=== PATIENT | female | born 1960 | race African-American/Black ===

== ENCOUNTER 2019-02-25 13:47 | Observation (INO) | payer MEDICARE, OTHER ==
--- NOTE | 2019-02-25 14:43 | ED ---
General Adult HPI - General Chief complaint: GI Bleed Stated complaint: rectal bleeding Time Seen by Provider: 02/25/19 13:55 Source: patient, RN notes reviewed Mode of arrival: ambulatory Limitations: no limitations - History of Present Illness Initial comments: This a 58-year-old female who presents emergency Department with a past medical history of alcoholism and upper GI bleed according to the patient. Patient is an extremely poor historian. Patient states she started having some bright red blood per rectum today. Patient denies any pain in the rectum patient denies abdominal pain patient denies nausea vomiting diarrhea. Patient denies any lightheadedness dizziness or near syncopal episode. Patient states this is how it occurred in the past. Patient states she hasn't drink any alcohol for a month. Patient states she's not had any illegal drugs. Patient denies any other symptoms at this time. - Related Data Home Medications Medication Instructions Recorded Confirmed Acetaminophen [Tylenol Arthritis] 650 mg PO Q4H PRN 02/25/19 02/25/19 Calcium Carbonate/Vitamin D3 1 tab PO BID 02/25/19 02/25/19 [Oyster Shell-D 250 mg Tablet] Chlorpheniramine Maleate 4 mg PO Q4H PRN 02/25/19 02/25/19 [Chlor-Trimeton] Cyanocobalamin (Vitamin B-12) 2,500 mcg PO DAILY 02/25/19 02/25/19 [Vitamin B-12] Ferrous Sulfate [Feosol] 325 mg PO DAILY 02/25/19 02/25/19 Gabapentin [Neurontin] 400 mg PO TID 02/25/19 02/25/19 Levothyroxine Sodium [Synthroid] 125 mcg PO DAILY 02/25/19 02/25/19 Multivitamins, Thera [Multivitamin 1 tab PO DAILY 02/25/19 02/25/19 (formulary)] Mylanta 30 ml PO Q4H PRN 02/25/19 02/25/19 Naproxen 500 mg PO TID PRN 02/25/19 02/25/19 OXcarbazepine [Trileptal] 600 mg PO TID 02/25/19 02/25/19 Ondansetron HCl [Zofran] 8 mg PO Q6H PRN 02/25/19 02/25/19 Ondansetron [Zofran] 4 mg IM Q6H 02/25/19 02/25/19 QUEtiapine [SEROquel] 200 mg PO HS 02/25/19 02/25/19 Ranitidine HCl [Zantac] 150 mg PO DAILY 02/25/19 02/25/19 Thiamine [Vitamin B-1] 100 mg PO DAILY 02/25/19 02/25/19 Tigan 200mg 200 mg IM Q6H PRN 02/25/19 02/25/19 Trimethobenzamide [Tigan] 300 mg PO Q6H PRN 02/25/19 02/25/19 busPIRone HCL 15 mg PO BID 02/25/19 02/25/19 Allergies Allergy/AdvReac Type Severity Reaction Status Date / Time ibuprofen [From Motrin] AdvReac bleeding Verified 02/25/19 14:10 Review of Systems ROS Statement: Those systems with pertinent positive or pertinent negative responses have been documented in the HPI. ROS Other: All systems not noted in ROS Statement are negative. Past Medical History Past Medical History: GI Bleed, Thyroid Disorder Past Surgical History: Bowel Resection Additional Past Surgical History / Comment(s): abd surgery Past Psychological History: Bipolar Smoking Status: Current every day smoker Past Alcohol Use History: Abuse, Daily Past Drug Use History: Cocaine General Exam - General Exam Comments Initial Comments: GENERAL: Patient is well-developed and well-nourished. Patient is nontoxic and well- hydrated and is in no acute distress. ENT: Neck is soft and supple. No significant lymphadenopathy is noted. Oropharynx is clear. Moist mucous membranes. Neck has full range of motion without eliciting any pain. EYES: The sclera were anicteric and conjunctiva were pink and moist. Extraocular movements were intact and pupils were equal round and reactive to light. Eyelids were unremarkable. PULMONARY: Unlabored respirations. Good breath sounds bilaterally. No audible rales rhonchi or wheezing was noted. CARDIOVASCULAR: There is a regular rate and rhythm without any murmurs gallops or rubs. ABDOMEN: Mild tenderness diffusely. Abdomen is mildly distended. No palpable organomegaly was noted. There is no palpable pulsatile mass. SKIN: Skin is clear with no lesions or rashes and otherwise unremarkable. NEUROLOGIC: Patient is alert and oriented x3. Cranial nerves II through XII are grossly intact. Motor and sensory are also intact. Normal speech, volume and content. Symmetrical smile. MUSCULOSKELETAL: Normal extremities with adequate strength and full range of motion. No lower extremity swelling or edema. No calf tenderness. LYMPHATICS: No significant lymphadenopathy is noted PSYCHIATRIC: Normal psychiatric evaluation. Limitations: no limitations Course Vital Signs 02/25/19 13:52 Temperature 98.2 F Pulse Rate 74 Respiratory 18 Rate Blood Pressure 128/82 O2 Sat by Pulse 100 Oximetry Medical Decision Making - Medical Decision Making Patient states she is having bowel movements regularly. Patient states she is not nauseous and has had no vomiting. - Lab Data Result diagrams: 02/25/19 15:15 02/25/19 15:15 Lab Results 02/25/19 02/25/19 02/25/19 Range/Units 15:15 15:15 15:15 WBC 4.1 (3.8-10.6) k/uL RBC 3.42 L (3.80-5.40) m/uL Hgb 8.3 L (11.4-16.0) gm/dL Hct 27.3 L (34.0-46.0) % MCV 80.0 (80.0-100.0) fL MCH 24.2 L (25.0-35.0) pg MCHC 30.3 L (31.0-37.0) g/dL RDW 17.7 H (11.5-15.5) % Plt Count 416 (150-450) k/uL Neutrophils % 46 % Lymphocytes % 39 % Monocytes % 8 % Eosinophils % 3 % Basophils % 1 % Neutrophils # 1.9 (1.3-7.7) k/uL Lymphocytes # 1.6 (1.0-4.8) k/uL Monocytes # 0.3 (0-1.0) k/uL Eosinophils # 0.1 (0-0.7) k/uL Basophils # 0.0 (0-0.2) k/uL Hypochromasia Slight Anisocytosis Slight Microcytosis Slight PT 9.6 (9.0-12.0) sec INR 0.9 (<1.2) APTT 23.7 (22.0-30.0) sec Sodium 140 (137-145) mmol/L Potassium 4.7 (3.5-5.1) mmol/L Chloride 108 H (98-107) mmol/L Carbon Dioxide 25 (22-30) mmol/L Anion Gap 7 mmol/L BUN 12 (7-17) mg/dL Creatinine 0.68 (0.52-1.04) mg/dL Est GFR (CKD-EPI)AfAm >90 (>60 ml/min/1.73 sqM) Est GFR (CKD-EPI)NonAf >90 (>60 ml/min/1.73 sqM) Glucose 89 (74-99) mg/dL Calcium 9.3 (8.4-10.2) mg/dL Magnesium 1.7 (1.6-2.3) mg/dL Total Bilirubin 0.1 L (0.2-1.3) mg/dL AST 27 (14-36) U/L ALT 15 (9-52) U/L Alkaline Phosphatase 62 (38-126) U/L Total Protein 6.2 L (6.3-8.2) g/dL Albumin 3.6 (3.5-5.0) g/dL Serum Alcohol <10 mg/dL Blood Type Blood Type Recheck Antibody Screen Spec Expiration Date 02/25/19 Range/Units 15:15 WBC (3.8-10.6) k/uL RBC (3.80-5.40) m/uL Hgb (11.4-16.0) gm/dL Hct (34.0-46.0) % MCV (80.0-100.0) fL MCH (25.0-35.0) pg MCHC (31.0-37.0) g/dL RDW (11.5-15.5) % Plt Count (150-450) k/uL Neutrophils % % Lymphocytes % % Monocytes % % Eosinophils % % Basophils % % Neutrophils # (1.3-7.7) k/uL Lymphocytes # (1.0-4.8) k/uL Monocytes # (0-1.0) k/uL Eosinophils # (0-0.7) k/uL Basophils # (0-0.2) k/uL Hypochromasia Anisocytosis Microcytosis PT (9.0-12.0) sec INR (<1.2) APTT (22.0-30.0) sec Sodium (137-145) mmol/L Potassium (3.5-5.1) mmol/L Chloride (98-107) mmol/L Carbon Dioxide (22-30) mmol/L Anion Gap mmol/L BUN (7-17) mg/dL Creatinine (0.52-1.04) mg/dL Est GFR (CKD-EPI)AfAm (>60 ml/min/1.73 sqM) Est GFR (CKD-EPI)NonAf (>60 ml/min/1.73 sqM) Glucose (74-99) mg/dL Calcium (8.4-10.2) mg/dL Magnesium (1.6-2.3) mg/dL Total Bilirubin (0.2-1.3) mg/dL AST (14-36) U/L ALT (9-52) U/L Alkaline Phosphatase (38-126) U/L Total Protein (6.3-8.2) g/dL Albumin (3.5-5.0) g/dL Serum Alcohol mg/dL Blood Type O Positive Blood Type Recheck CABO Indicated Antibody Screen NEGATIVE Spec Expiration Date 02/28/2019 - 2314 Disposition Clinical Impression: Anemia, Alcoholism, GI bleed Disposition: ADMITTED IP TO THIS [facility] Referrals: None,Stated [Primary Care Provider] - 1-2 days Time of Disposition: 17:04
--- NOTE | 2019-02-25 16:21 | XR ---
EXAMINATION TYPE: XR abdomen 1V DATE OF EXAM: 02/25/2019 4:10 PM CLINICAL HISTORY: GI bleeding. Abdominal pain. TECHNIQUE: Single upright image of the abdomen is obtained. COMPARISON: None. FINDINGS: The colon is dilated up to 8.9 cm. Surgical clips are seen within the right lower quadrant and left epigastric region. Scattered gas is seen in nondilated small bowel loops. There is no pneum operitoneum or abnormal calcification appreciated. The lung bases are clear and the osseous structure s are intact. Mild levoscoliosis of the lumbar spine and moderate degenerative disc disease are seen. IMPRESSION: Colonic dilatation up to 8.9 cm with a paucity of rectal air. Mechanical colonic obstruct ion is suspected.
[2019-02-25 16:22] LABS: ALT 15 U/L (9-52); AST 27 U/L (14-36); African American GFR (CKD) >90 (>60 ml/min/1.73 sqM); Albumin 3.6 g/dL (3.5-5.0); Alcohol <10 mg/dL; Alkaline Phosphatase 62 U/L (38-126); Anion Gap 7 mmol/L; Blood Urea Nitrogen 12 mg/dL (7-17); Calcium 9.3 mg/dL (8.4-10.2); Carbon Dioxide 25 mmol/L (22-30); Chloride 108 mmol/L (98-107); Glucose 89 mg/dL (74-99); Magnesium 1.7 mg/dL (1.6-2.3); Potassium 4.7 mmol/L (3.5-5.1); Sodium 140 mmol/L (137-145); Total Bilirubin 0.1 mg/dL (0.2-1.3); Total Protein 6.2 g/dL (6.3-8.2)
[2019-02-25 16:28] LABS: INR 0.9 (<1.2); Partial Thromboplastin Time 23.7 sec (22.0-30.0); Prothrombin Time 9.6 sec (9.0-12.0)
[2019-02-25 16:42] LABS: Anisocytosis Slight; Basophils % (A) 1 %; Eosinophils # (A) 0.1 k/uL (0-0.7); Eosinophils % (A) 3 %; HCT 27.3 % (34.0-46.0); HGB 8.3 gm/dL (11.4-16.0); Hypochromasia Slight; Lymphocytes # (A) 1.6 k/uL (1.0-4.8); Lymphocytes % (A) 39 %; MCH 24.2 pg (25.0-35.0); MCHC 30.3 g/dL (31.0-37.0); Mean Platelet Volume 7.2; Microcytosis Slight; Monocytes # (A) 0.3 k/uL (0-1.0); Monocytes % (A) 8 %; Neutrophils # (A) 1.9 k/uL (1.3-7.7); Neutrophils % (A) 46 %; Platelet Count 416 k/uL (150-450); RBC 3.42 m/uL (3.80-5.40); RDW 17.7 % (11.5-15.5); WBC 4.1 k/uL (3.8-10.6)
[2019-02-25] MEDS ORDERED: SODIUM CHLORIDE 0.9% 1,000 ML IV ONE (17:04)
[2019-02-25] MEDS ORDERED: LORazepam 2 MG/ML INJ IV STA (17:29)
--- NOTE | 2019-02-25 20:13 | CT ---
EXAMINATION TYPE: CT abdomen pelvis w con DATE OF EXAM: 02/25/2019 COMPARISON: None HISTORY: Rectal bleeding. CT DLP: 735.5 mGycm Automated exposure control for dose reduction was used. TECHNIQUE: Helical acquisition of images was performed from the lung bases through the pelvis. CONTRAST: Performed without Oral Contrast and with IV Contrast, patient injected with 100ml inject th rough patient's left dorsal foot. mL of Isovue 300. FINDINGS: VISUALIZED SUPRADIAPHRAGMATIC STRUCTURES: Moderate cardiomegaly with panchamber enlargement noted, an d pericardial effusion. No acute pulmonary-pleural process evident. LIVER/GB: No significant abnormality is appreciated. PANCREAS: No significant abnormality is seen. SPLEEN: No significant abnormality is seen. ADRENALS: No significant abnormality is seen. KIDNEYS: No significant abnormality is seen. FREE AIR: No free air is visualized. RETROPERITONEAL ADENOPATHY: None visualized REPRODUCTIVE ORGANS: No significant abnormality is seen URINARY BLADDER: No significant abnormality is seen. PELVIC ADENOPATHY: None visualized. OSSEOUS STRUCTURES: No significant abnormality is seen. BOWEL: The stomach is fluid distended but not dilated. Duodenum and jejunum and ileum are normal in appearance. The colon is completely redundant and it is distended with gas and fecal material through out. There is a caliber change at the distal sigmoid level. The dilated sigmoid does not show mural t hickening or edematous reticulation within its mesocolon. If clinical concern for sigmoid volvulus, e ither now or intermittently, this can be excluded with simple prone CT pelvis imaging without contras t. OTHER: No acute vascular findings. IMPRESSION: 1) NO DEFINITE ACUTE PROCESS. HOWEVER, DISTAL SIGMOID CALIBER CHANGE NOTED, UNLIKELY TO REPRESENT A VOLVULUS BUT DISCUSSION ABOVE. 2) CARDIOMEGALY WITH PERICARDIAL EFFUSION.
[2019-02-25 22:16] VITALS: BMI 25.0
[2019-02-25] MEDS ORDERED: TRIMETHOBENZAMIDE 100 MG/ML 2 ML VIAL IM PRN (22:32)
[2019-02-25] MEDS ORDERED: TRIMETHOBENZAMIDE 300 MG CAP PO PRN (22:32)
[2019-02-25] MEDS ORDERED: ONDANSETRON 4 MG TAB PO PRN (22:33)
[2019-02-25] MEDS ORDERED: MAG HYDROX/AL HYDROX/SIMETH 30 ML CUP PO PRN (22:35)
[2019-02-25] MEDS ORDERED: LORazepam 2 MG/ML INJ IV PRN (22:37)
[2019-02-25] MEDS: busPIRone HCl 5 MG TAB PO SCH (23:24)
[2019-02-25] MEDS: QUEtiapine 200 MG TAB PO SCH (23:25)
[2019-02-25] MEDS: GABAPENTIN 400 MG CAP PO SCH (23:25)
[2019-02-25] MEDS: OXcarbazepine 300 MG TAB PO SCH (23:25)
[2019-02-25 23:36] LABS: Anisocytosis Slight; Basophils # (A) 0.1 k/uL (0-0.2); Basophils % (A) 1 %; Eosinophils # (A) 0.2 k/uL (0-0.7); Eosinophils % (A) 4 %; HCT 26.4 % (34.0-46.0); HGB 8.2 gm/dL (11.4-16.0); Hypochromasia Slight; Lymphocytes # (A) 2.1 k/uL (1.0-4.8); Lymphocytes % (A) 45 %; MCH 24.7 pg (25.0-35.0); MCHC 31.2 g/dL (31.0-37.0); MCV 79.3 fL (80.0-100.0); Mean Platelet Volume 7.5; Microcytosis Slight; Monocytes # (A) 0.4 k/uL (0-1.0); Monocytes % (A) 8 %; Neutrophils # (A) 1.8 k/uL (1.3-7.7); Neutrophils % (A) 40 %; Platelet Count 379 k/uL (150-450); RBC 3.32 m/uL (3.80-5.40); RDW 17.5 % (11.5-15.5); WBC 4.6 k/uL (3.8-10.6)
[2019-02-26] MEDS ORDERED: NON-FORMULARY DRUG (Ondansetron Hcl [Zofran] 8 MG) PO PRN (00:29)
--- NOTE | 2019-02-26 05:17 | HP ---
HISTORY AND PHYSICAL DATE OF SERVICE: 02/25/2019 CHIEF COMPLAINT: Rectal bleeding. HISTORY OF PRESENT ILLNESS: This 58-year-old woman with a past medical history of multiple medical problems including GI bleed, seizure disorder, hypothyroidism, was living in the [place] area. The patient is currently at [place] for possibly alcohol issues. The patient previously had GI bleed and had stomach ulcers and surgery in the [place] area. The are not available at this time. The patient is currently in [place] as mentioned earlier. Patient had episodes of rectal bleeding, multiple and the patient had abdominal discomfort. The patient came to [facility] and admitted for further evaluation and treatment. The patient reports bright red blood per rectum. Hemoglobin is found to be 8.3. There is no history of any fever or rigors. No history of headache, loss of consciousness or seizures. PAST MEDICAL HISTORY: Seizure disorder, hypothyroidism, history of schizophrenia, bipolar, ETOH abuse, cocaine abuse, Summer-Quiroz tear, anemia, hemorrhoids, schizoaffective disorder. MEDICATIONS: Home medications are: 1. Buspirone 15 mg p.o. b.i.d. 2. Tigan 300 mg q.6 p.r.n. 3. Vitamin B1, 100 mg p.o. daily. 4. Zantac 150 mg p.o. daily. 5. Seroquel 200 mg q.h.s. 6. Zofran 4 mg q.6 p.r.n. 7. Zofran 8 mg q.6 p.r.n. 8. Trileptal 600 mg p.o. t.i.d. 9. Naprosyn 500 mg t.i.d. p.r.n. 10.Mylanta 30 mL q.4 p.r.n. 11.Multivitamins one p.o. daily. 12.Synthroid 125 mcg p.o. daily. 13.Neurontin 400 mg p.o. t.i.d. 14.Iron sulfate 325 mg p.o. daily. 15.Vitamin B12, 2.5 mg p.o. daily. 16.Chlor-Trimeton 4 mg p.o. q.4 p.r.n. 17.Oyster shell 1 tablet p.o. b.i.d. 18.Tylenol 650 mg q.4 p.r.n. ALLERGIES: Allergies are IBUPROFEN. FAMILY HISTORY: No history of heart disease or strokes in the family. SOCIAL HISTORY: History of polysubstance abuse as mentioned including smoking, alcohol and cocaine per chart. REVIEW OF SYSTEMS: ENT: No diminished hearing or diminished vision. CARDIOVASCULAR SYSTEM: No angina. RESPIRATORY SYSTEM: As mentioned earlier. GI: As mentioned earlier. : No dysuria. NERVOUS SYSTEM: Abnormal movements. ALLERGY/IMMUNOLOGY: No asthma or hayfever. MUSCULOSKELETAL: As mentioned earlier. HEMATOLOGY/ONCOLOGY: No history of anemia. ENDOCRINE: Hypothyroidism. CONSTITUTIONAL: As mentioned earlier. DERMATOLOGY: Negative. RHEUMATOLOGY: Negative. PSYCHIATRY: As mentioned earlier. PHYSICAL EXAMINATION: The patient is alert and oriented x3. Pulse 68, blood pressure 145/84, respiration 16, temperature 97.3, pulse ox 99% on room air. HEENT: Conjunctivae pale. Oral mucosa moist. NECK: No jugular venous distention. No carotid bruit. No lymph node enlargement. CARDIOVASCULAR: S1, S2 muffled. No S3, no S4. RESPIRATORY: Breath sounds diminished in the bases. No rhonchi, no crackles. ABDOMEN: Soft, mild diffuse distention. Status post recent surgery, which is healing. Mild diffuse tenderness. No guarding. No rigidity. Bowel sounds present. No ascites. LEGS: No edema. No swelling. NERVOUS SYSTEM: Higher functions as mentioned earlier. Moves all 4 limbs. No focal motor or sensory deficit. LYMPHATICS: No lymphadenopathy of the neck, axillae or groin. SKIN: No ulcer, rash or bleeding. JOINTS: No active deforming arthropathy. LABS: Labs are at this time show WBC 4.6, hemoglobin is 8.2, MCV 79.3. Sodium 140, potassium 4.7. ASSESSMENT: 1. Acute gastrointestinal bleed with acute blood loss anemia. 2. Microcytosis. 3. Previous history of gastrointestinal bleed, stomach ulcers and as well as gastric surgery. 4. History of alcoholism. 5. History of polysubstance abuse. 6. History of seizure disorder. 7. History of hypothyroidism. 8. History of bipolar, schizoaffective disorder. 9. History of Summer-Quiroz tear. 10.History of lupus. 11.Continued history of nicotine dependence. 12.History of cocaine abuse. RECOMMENDATIONS AND DISCUSSION: This 58-year-old woman presented with multiple complex medical issues. Will monitor the patient closely. Continue the current medications. Continue symptomatic treatment. Will monitor hemoglobin closely. The morning hemoglobin is 8.3. I would recommend hemoglobin currently and repeat hemoglobin, Gastroenterology consultation, possible endoscopies. Will get old records from [facility]. I would also recommend surgical evaluation. Resume the home medications. Hold NSAIDs. DVT prophylaxis. Prognosis guarded because of multiple complex medical issues. Further recommendations to follow. Also recommend the coagulation parameters are within normal limits. If hemoglobin falls below 7, I would recommend a transfusion and continue to monitor. Once again, the prognosis extremely guarded. MMODL / IJN: [id number] / FINA
[2019-02-26] MEDS: LEVOTHYROXINE 50 MCG TAB PO SCH (06:09)
--- NOTE | 2019-02-26 08:09 | P.CONS ---
History of Present Illness - Reason for Consult Consult date: 02/26/19 GI bleed Requesting physician: Behzad Chun - Chief Complaint GI bleed - History of Present Illness 58-year-old female past medical history schizophrenia bipolar, perforated gastric ulcer about 2 months ago status post repair followed by EGD colonoscopy 1 month ago at [facility] she had multiple gastric ulcers, polysubstance abuse including cocaine alcoholism recently admitted to [facility]. Presents with rectal bleeding bright red in nature without fever or chills 3 days. Last bloody BM was yesterday afternoon in the ER. Last alcohol drink about a month ago. Admission hemoglobin 8.3. MCV 80. Platelet 416. INR 0.9. BUN 12. Creatinine 0.6. Serum alcohol less than 10. LFTs total bilirubin 0.1. AST 27. ALT 15. AP 62. Patient has been faithfully taking PPI therapy daily. No NSAIDs or aspirin. CT abdomen no definite acute process. Colon is completely redundant and distended with gas and fecal material throughout. Caliber change at the distal sigmoid level. Unlikely to represent a volvulus. Cardiomegaly with pericardial effusion. Review of Systems Constitutional: Denies fever, chills, sweats, weight gain, or loss. HEENT: Negative for migraines, blurred vision or loss, earaches, drainage, tinnitus, oral mucosal lesions, dysphagia, or odynophagia. CARDIAC: Negative for chest pain, arrhythmias, or palpitation. RESPIRATORY: Negative for shortness of breath, hemoptysis, cough, or sputum production. GI: See HPI for pertinent findings. : Negative for hematuria, urgency, frequency, polyuria, or dysuria. GYNc: Denies possibility of . Negative vaginal discharge. MUSCULOSKELETAL: Negative for muscle aches, swelling, arthritis, and arthralgias. NEUROLOGIC: Negative for stroke or TIA. ENDOCRINE: Negative for thyroid problems. SKIN: Negative for rash or itching. PSYCHIATRIC: Negative history for depression and anxiety Past Medical History Past Medical History: GI Bleed, Seizure Disorder, Thyroid Disorder Additional Past Medical History / Comment(s): Patient poor historian, history gained from [facility] paperwork: Schizophrenia, bipolar, EtOh abuse, cocaine abuse, Gi ulcers, Summer-Quiroz tear, anemia, hemorrhoids, lupus History of Any Multi-Drug Resistant Organisms: None Reported Past Surgical History: Bowel Resection Additional Past Surgical History / Comment(s): Bowel resection December 2018 Past Anesthesia/Blood Transfusion Reactions: No Reported Reaction Smoking Status: Current every day smoker Medications and Allergies Home Medications Medication Instructions Recorded Confirmed Type Acetaminophen [Tylenol Arthritis] 650 mg PO Q4H PRN 02/25/19 02/25/19 History Calcium Carbonate/Vitamin D3 1 tab PO BID 02/25/19 02/25/19 History [Oyster Shell-D 250 mg Tablet] Chlorpheniramine Maleate 4 mg PO Q4H PRN 02/25/19 02/25/19 History [Chlor-Trimeton] Cyanocobalamin (Vitamin B-12) 2,500 mcg PO DAILY 02/25/19 02/25/19 History [Vitamin B-12] Gabapentin [Neurontin] 400 mg PO TID 02/25/19 02/25/19 History Levothyroxine Sodium [Synthroid] 125 mcg PO DAILY 02/25/19 02/25/19 History Multivitamins, Thera [Multivitamin 1 tab PO DAILY 02/25/19 02/25/19 History (formulary)] Mylanta 30 ml PO Q4H PRN 02/25/19 02/25/19 History OXcarbazepine [Trileptal] 600 mg PO TID 02/25/19 02/25/19 History Ondansetron HCl [Zofran] 8 mg PO Q6H PRN 02/25/19 02/25/19 History Ondansetron [Zofran] 4 mg IM Q6H 02/25/19 02/25/19 History QUEtiapine [SEROquel] 200 mg PO HS 02/25/19 02/25/19 History Thiamine [Vitamin B-1] 100 mg PO DAILY 02/25/19 02/25/19 History Tigan 200mg 200 mg IM Q6H PRN 02/25/19 02/25/19 History Trimethobenzamide [Tigan] 300 mg PO Q6H PRN 02/25/19 02/25/19 History busPIRone HCL 15 mg PO BID 02/25/19 02/25/19 History Ferrous Sulfate [Iron (65 MG 325 mg PO DAILY #1 02/27/19 02/25/19 Rx Elemental)] Pantoprazole [Protonix] 40 mg PO AC-BID #60 tablet. 02/27/19 Rx Allergies Allergy/AdvReac Type Severity Reaction Status Date / Time ibuprofen [From Motrin] AdvReac bleeding Verified 02/25/19 14:10 Physical Exam Vitals: Vital Signs Temp Pulse Pulse Resp BP BP Pulse Ox 02/26/19 04:56 98.4 F 61 16 91/52 100 02/26/19 00:10 68 16 02/25/19 21:42 97.3 F L 68 16 145/84 99 02/25/19 19:30 98.3 F 73 17 124/73 99 02/25/19 13:52 98.2 F 74 18 128/82 100 Intake and Output 02/25/19 02/25/19 02/26/19 14:59 22:59 06:59 Intake Total 0 Balance 0 Intake: Oral 0 Other: # Voids 2 Weight 74.843 kg General appearance: The patient is alert, oriented, in no acute distress. HET: Head is normocephalic and atraumatic. Pupils are equal and reactive. Oropharynx is clear without lesions. Neck: Supple without lymphadenopathy. Trachea midline. Heart: S1 S2. Regular rate and rhythm. Lungs: No crackles or wheezes are heard. Abdomen: Soft, very mild tenderness to the mid abdomen, nondistended with bowel sounds. No peritoneal signs. No palpable organomegaly or masses. Extremities: Normal skin color and turgor. No cyanosis, rash, ulceration, clubbing, or edema. Radial and pedal pulses are 2/4 bilaterally. Neurological: No focal deficits. Strength and sensation are grossly intact. Results CBC & Chem 7: 02/26/19 08:53 02/27/19 07:57 Labs: Abnormal Lab Results - Last 24 Hours (Table) 02/25/19 02/25/19 02/25/19 Range/Units 15:15 15:15 23:12 RBC 3.42 L 3.32 L (3.80-5.40) m/uL Hgb 8.3 L 8.2 L (11.4-16.0) gm/dL Hct 27.3 L 26.4 L (34.0-46.0) % MCV 79.3 L (80.0-100.0) fL MCH 24.2 L 24.7 L (25.0-35.0) pg MCHC 30.3 L (31.0-37.0) g/dL RDW 17.7 H 17.5 H (11.5-15.5) % Chloride 108 H (98-107) mmol/L Total Bilirubin 0.1 L (0.2-1.3) mg/dL Total Protein 6.2 L (6.3-8.2) g/dL CT scan - abdomen: report reviewed (Dr. Zee) Assessment and Plan (1) GI bleed Narrative/Plan: 58-year-old female history of polysubstance abuse alcoholism recent perforated gastric ulcer status post repair at outside hospital followed by EGD colonoscopy about a month ago, patient reports she had gastric ulcers, admitted with acute bright red rectal bleeding underlying normocytic hypochromic anemia suspect acute blood loss component. Current Visit: Yes Status: Acute Code(s): K92.2 - GASTROINTESTINAL HEMORRHAGE, UNSPECIFIED SNOMED Code(s): 07901810 (2) Normocytic anemia Current Visit: Yes Status: Acute Code(s): D64.9 - ANEMIA, UNSPECIFIED SNOMED Code(s): 867064834 (3) Acute blood loss anemia Current Visit: Yes Status: Acute Code(s): D62 - ACUTE POSTHEMORRHAGIC ANEMIA SNOMED Code(s): 305105250 (4) History of ETOH abuse Current Visit: Yes Status: Acute Code(s): F10.11 - ALCOHOL ABUSE, IN REMISSION SNOMED Code(s): 565647918 Plan: 1. Nothing by mouth except meds. Surgical records from [facility] have been requested. CBC monitoring. Protonix 40 mg twice daily. Surveillance EGD discussed. Thank you for this kind referral and the opportunity to participate in the care of your patient. This consultation was discussed with Dr. Up. The impression and plan of care have been directed as dictated.
[2019-02-26] MEDS: NICOTINE 14MG/24HR PATCH TRANSDERM SCH ×2 (08:45→08:52)
[2019-02-26] MEDS: GABAPENTIN 400 MG CAP PO SCH ×3 (08:45→22:05)
[2019-02-26] MEDS: busPIRone HCl 5 MG TAB PO SCH ×2 (08:45→22:05)
[2019-02-26] MEDS: OXcarbazepine 300 MG TAB PO SCH ×3 (08:46→22:06)
[2019-02-26] MEDS: THIAMINE 100 MG TAB PO SCH (08:47)
[2019-02-26] MEDS ORDERED: NON-FORMULARY DRUG (Buspirone Hcl [Buspirone Hcl] 15 MG) PO SCH (09:00)
[2019-02-26] MEDS ORDERED: OXCARBAZEPINE 600 MG PO SCH (09:00)
[2019-02-26] MEDS ORDERED: PANTOPRAZOLE 40 MG/10 ML VIAL IVP SCH ×2 (09:00)
[2019-02-26 09:24] LABS: Anisocytosis Slight; Basophils % (A) 1 %; Eosinophils # (A) 0.1 k/uL (0-0.7); Eosinophils % (A) 2 %; HCT 28.2 % (34.0-46.0); HGB 8.5 gm/dL (11.4-16.0); Hypochromasia Slight; Lymphocytes # (A) 1.7 k/uL (1.0-4.8); Lymphocytes % (A) 47 %; MCH 24.4 pg (25.0-35.0); MCHC 30.1 g/dL (31.0-37.0); MCV 81.2 fL (80.0-100.0); Mean Platelet Volume 6.7; Microcytosis Slight; Monocytes # (A) 0.2 k/uL (0-1.0); Monocytes % (A) 6 %; Neutrophils # (A) 1.4 k/uL (1.3-7.7); Neutrophils % (A) 40 %; Platelet Count 380 k/uL (150-450); RBC 3.47 m/uL (3.80-5.40); RDW 17.6 % (11.5-15.5); WBC 3.5 k/uL (3.8-10.6)
[2019-02-26 09:34] LABS: African American GFR (CKD) >90 (>60 ml/min/1.73 sqM); Anion Gap 4 mmol/L; Blood Urea Nitrogen 8 mg/dL (7-17); Calcium 8.5 mg/dL (8.4-10.2); Carbon Dioxide 24 mmol/L (22-30); Chloride 107 mmol/L (98-107); Glucose 70 mg/dL (74-99); Potassium 4.5 mmol/L (3.5-5.1); Sodium 135 mmol/L (137-145)
--- NOTE | 2019-02-26 11:03 | P.GSCN ---
History of Present Illness Consult date: 02/26/19 Reason for Consult: GI bleed Requesting physician: Behzad Chun History of present illness: CHIEF COMPLAINT: Bright red blood per rectum HISTORY OF PRESENT ILLNESS: 58-year-old female with a history of polysubstance abuse including alcoholism and cocaine use who presents to the emergency room with a chief complaint of bright red blood per rectum. Patient states she has been having rectal bleeding on and off for the past few months but noticed it has been worse the past 2 days. She complains of epigastric pain this morning. Denies nausea or vomiting. Denies fever or chills. Reports last alcoholic drink was about 4-5 weeks ago. She apparently had an EGD and colonoscopy performed about a month ago and was found to have a perforated gastric ulcer. No records available at this time to review. PAST MEDICAL HISTORY: See list. PAST SURGICAL HISTORY: See list. SOCIAL HISTORY: No illicit drug use. REVIEW OF SYSTEMS: CONSTITUTIONAL: Denies fever or chills. HEENT: Denies blurred vision, vision changes, or eye pain. Denies hemoptysis CARDIOVASCULAR: Denies chest pain or pressure. RESPIRATORY: No shortness of breath. GASTROINTESTINAL: Refer to HPI for pertinent findings HEMATOLOGIC: Denies bleeding disorders. GENITOURINARY: Denies any blood in urine. SKIN: Denies pruitis. Denies rash. PHYSICAL EXAM: VITAL SIGNS: Reviewed. GENERAL: Well-developed in no acute distress. HEENT: No sclera icterus. Extraocular movements grossly intact. Moist buccal mucosa. Head is atraumatic, normocephalic. ABDOMEN: Soft. Nondistended. Tenderness to epigastric region upon palpation. Positive bowel sounds. NEUROLOGIC: Alert and oriented. Cranial nerves II through XII grossly intact. LABORATORY DATA: Hemoglobin on admission 8.3. Repeat 8.2 and 8.5. IMAGIN. Abdominal x-ray: Colonic dilation up to 8.9 cm with paucity of rectal air. Mechanical colonic obstruction is suspected. 2. CT abdomen and pelvis: Stomach is fluid distended but not dilated. Duodenum and jejunum and ileum are normal in appearance. Colon is completely redundant and is distended with gas and fecal material throughout. There is caliber change at the distal sigmoid level. Dilated sigmoid does not show mural thickening or edematous reticulation within its mesocolon. ASSESSMENT: 1. GI Bleed, patient presents with bright red blood per rectum 2. Acute blood loss anemia, secondary to above 3. History of polysubstance abuse including alcoholism and cocaine use PLAN: 1. Continue to monitor hemoglobin 2. Continue Protonix BID 3. Will defer endoscopic studies to GI team. Patient scheduled for EGD this afternoon with Dr. Up 4. No surgical intervention recommended at this time. We will continue to follow. Nurse practitioner note has been reviewed by physician. Signing provider agrees with the documented findings, assessment, and plan of care. Past Medical History Past Medical History: GI Bleed, Seizure Disorder, Thyroid Disorder Additional Past Medical History / Comment(s): Patient poor historian, history gained from [place] paperwork: Schizophrenia, bipolar, EtOh abuse, cocaine abuse, Gi ulcers, Summer-Quiroz tear, anemia, hemorrhoids, lupus History of Any Multi-Drug Resistant Organisms: None Reported Past Surgical History: Bowel Resection Additional Past Surgical History / Comment(s): Bowel resection December 2018 Past Anesthesia/Blood Transfusion Reactions: No Reported Reaction Smoking Status: Current every day smoker Medications and Allergies Home Medications Medication Instructions Recorded Confirmed Type Acetaminophen [Tylenol Arthritis] 650 mg PO Q4H PRN 02/25/19 02/25/19 History Calcium Carbonate/Vitamin D3 1 tab PO BID 02/25/19 02/25/19 History [Oyster Shell-D 250 mg Tablet] Chlorpheniramine Maleate 4 mg PO Q4H PRN 02/25/19 02/25/19 History [Chlor-Trimeton] Cyanocobalamin (Vitamin B-12) 2,500 mcg PO DAILY 02/25/19 02/25/19 History [Vitamin B-12] Ferrous Sulfate [Feosol] 325 mg PO DAILY 02/25/19 02/25/19 History Gabapentin [Neurontin] 400 mg PO TID 02/25/19 02/25/19 History Levothyroxine Sodium [Synthroid] 125 mcg PO DAILY 02/25/19 02/25/19 History Multivitamins, Thera [Multivitamin 1 tab PO DAILY 02/25/19 02/25/19 History (formulary)] Mylanta 30 ml PO Q4H PRN 02/25/19 02/25/19 History Naproxen 500 mg PO TID PRN 02/25/19 02/25/19 History OXcarbazepine [Trileptal] 600 mg PO TID 02/25/19 02/25/19 History Ondansetron HCl [Zofran] 8 mg PO Q6H PRN 02/25/19 02/25/19 History Ondansetron [Zofran] 4 mg IM Q6H 02/25/19 02/25/19 History QUEtiapine [SEROquel] 200 mg PO HS 02/25/19 02/25/19 History Ranitidine HCl [Zantac] 150 mg PO DAILY 02/25/19 02/25/19 History Thiamine [Vitamin B-1] 100 mg PO DAILY 02/25/19 02/25/19 History Tigan 200mg 200 mg IM Q6H PRN 02/25/19 02/25/19 History Trimethobenzamide [Tigan] 300 mg PO Q6H PRN 02/25/19 02/25/19 History busPIRone HCL 15 mg PO BID 02/25/19 02/25/19 History Allergies Allergy/AdvReac Type Severity Reaction Status Date / Time ibuprofen [From Motrin] AdvReac bleeding Verified 02/25/19 14:10 Surgical - Exam Vital Signs Temp Pulse Resp BP Pulse Ox 98.2 F 74 18 128/82 100 02/25/19 13:52 02/25/19 13:52 02/25/19 13:52 02/25/19 13:52 02/25/19 13:52 Results - Labs 02/26/19 08:53 02/26/19 08:53 Abnormal Lab Results - Last 24 Hours (Table) 02/25/19 02/25/19 02/25/19 Range/Units 15:15 15:15 23:12 WBC (3.8-10.6) k/uL RBC 3.42 L 3.32 L (3.80-5.40) m/uL Hgb 8.3 L 8.2 L (11.4-16.0) gm/dL Hct 27.3 L 26.4 L (34.0-46.0) % MCV 79.3 L (80.0-100.0) fL MCH 24.2 L 24.7 L (25.0-35.0) pg MCHC 30.3 L (31.0-37.0) g/dL RDW 17.7 H 17.5 H (11.5-15.5) % Sodium (137-145) mmol/L Chloride 108 H (98-107) mmol/L Glucose (74-99) mg/dL Total Bilirubin 0.1 L (0.2-1.3) mg/dL Total Protein 6.2 L (6.3-8.2) g/dL 02/26/19 02/26/19 Range/Units 08:53 08:53 WBC 3.5 L (3.8-10.6) k/uL RBC 3.47 L (3.80-5.40) m/uL Hgb 8.5 L (11.4-16.0) gm/dL Hct 28.2 L (34.0-46.0) % MCV (80.0-100.0) fL MCH 24.4 L (25.0-35.0) pg MCHC 30.1 L (31.0-37.0) g/dL RDW 17.6 H (11.5-15.5) % Sodium 135 L (137-145) mmol/L Chloride (98-107) mmol/L Glucose 70 L (74-99) mg/dL Total Bilirubin (0.2-1.3) mg/dL Total Protein (6.3-8.2) g/dL Diabetes panel 02/25/19 02/26/19 Range/Units 15:15 08:53 Sodium 140 135 L (137-145) mmol/L Potassium 4.7 4.5 (3.5-5.1) mmol/L Chloride 108 H 107 (98-107) mmol/L Carbon Dioxide 25 24 (22-30) mmol/L BUN 12 8 (7-17) mg/dL Creatinine 0.68 0.56 (0.52-1.04) mg/dL Glucose 89 70 L (74-99) mg/dL Calcium 9.3 8.5 (8.4-10.2) mg/dL AST 27 (14-36) U/L ALT 15 (9-52) U/L Alkaline Phosphatase 62 (38-126) U/L Total Protein 6.2 L (6.3-8.2) g/dL Albumin 3.6 (3.5-5.0) g/dL Calcium panel 02/25/19 02/26/19 Range/Units 15:15 08:53 Calcium 9.3 8.5 (8.4-10.2) mg/dL Albumin 3.6 (3.5-5.0) g/dL Pituitary panel 02/25/19 02/26/19 Range/Units 15:15 08:53 Sodium 140 135 L (137-145) mmol/L Potassium 4.7 4.5 (3.5-5.1) mmol/L Chloride 108 H 107 (98-107) mmol/L Carbon Dioxide 25 24 (22-30) mmol/L BUN 12 8 (7-17) mg/dL Creatinine 0.68 0.56 (0.52-1.04) mg/dL Glucose 89 70 L (74-99) mg/dL Calcium 9.3 8.5 (8.4-10.2) mg/dL Adrenal panel 02/25/19 02/26/19 Range/Units 15:15 08:53 Sodium 140 135 L (137-145) mmol/L Potassium 4.7 4.5 (3.5-5.1) mmol/L Chloride 108 H 107 (98-107) mmol/L Carbon Dioxide 25 24 (22-30) mmol/L BUN 12 8 (7-17) mg/dL Creatinine 0.68 0.56 (0.52-1.04) mg/dL Glucose 89 70 L (74-99) mg/dL Calcium 9.3 8.5 (8.4-10.2) mg/dL Total Bilirubin 0.1 L (0.2-1.3) mg/dL AST 27 (14-36) U/L ALT 15 (9-52) U/L Alkaline Phosphatase 62 (38-126) U/L Total Protein 6.2 L (6.3-8.2) g/dL Albumin 3.6 (3.5-5.0) g/dL
[2019-02-26] MEDS ORDERED: GLYCOPYRROLATE 0.2 MG/ML 2 ML VIAL ONE (13:47)
[2019-02-26] MEDS ORDERED: LIDOCAINE 1% INJ 10MG/ML (20 ML MDV) ONE (13:47)
[2019-02-26] MEDS ORDERED: PROPOFOL 10 MG/ML 20 ML VIAL IV ONE (13:47)
[2019-02-26] MEDS ORDERED: IV FLUID CONTINUATION 400 ML IV ONE (13:59)
--- NOTE | 2019-02-26 14:25 | P.PCN ---
Date of Procedure: 02/26/19 Description of Procedure: BRIEF HISTORY: 58-year-old female past medical history perforated gastric ulcer about 2 months ago status post repair followed by EGD colonoscopy 1 month ago at [facility] she had multiple gastric ulcers, polysubstance abuse including cocaine alcoholism recently admitted to [place]. Presents with rectal bleeding bright red in nature without fever or chills 3 days. Last bloody BM was yesterday afternoon in the ER. Last alcohol drink about a month ago. Admission hemoglobin 8.3. LFTs total bilirubin 0.1. AST 27. ALT 15. AP 62. Patient has been faithfully taking PPI therapy daily. No NSAIDs or aspirin. CT abdomen no definite acute process. Colon is completely redundant and distended with gas and fecal material throughout. Caliber change at the distal sigmoid level. Unlikely to represent a volvulus. Cardiomegaly with pericardial effusion. PROCEDURE PERFORMED: Esophagogastroduodenoscopy with biopsy. PREOPERATIVE DIAGNOSIS: Anemia and acute blood loss, history of gastric ulcers. ESTIMATED BLOOD LOSS: Minimal. IV sedation per anesthesia. PROCEDURE: After informed consent was obtained, the patient was brought into the endoscopy unit. IV sedation was administered by Anesthesia under continuous monitoring. Initially the Olympus GIF-190 video endoscope was inserted into the mouth. Esophagus intubated without any difficulty. It was gradually advanced into the stomach and duodenum and carefully examined. The bulb and the second part of the duodenum were significant for some mild scattered erythema suggestive of mild duodenitis and one superficial erosion with no old blood or signs of active bleeding, biopsies were taken. The scope at this time was withdrawn to the stomach, adequately insufflated with air, and upon careful examination, mucosa of the antrum, body, cardia and the fundus were significant for abnormality of the the major curvature of the stomach likely at the place of the patient's prior surgical intervention for perforated ulcer. In addition multiple superficial ulcers were found in the antrum of the stomach with no signs or symptoms of bleeding and diffuse erythema in the antrum and body consistent with moderate gastritis were noted with biopsies of the antrum and body taken. The scope was then withdrawn into the esophagus. The GE junction was located at 45 cm from the incisors where 2 previously placed endoscopic clips were noted. The esophagus appeared normal. There were no erosions or ulcerations seen and the patient tolerated the procedure well. IMPRESSION: 1. No active bleeding or evidence of old blood. 2. Moderate gastritis with multiple superficial ulcers in the antrum with biopsies of the antrum and body taken. Mild duodenitis, biopsied. 2 previously placed endoscopic clips at the GE junction noted. RECOMMENDATIONS: The findings of this examination were discussed with the patient. Okay to resume diet. Continue Protonix twice a day. Await pathology from biopsies. No plan for further endoscopic evaluation at this time as patient has reported recent colonoscopy in 2019, however further signs or symptoms of GI bleeding occur will consider further workup.
[2019-02-26] MEDS: DEXTROSE 5%-0.9% NACL 1,000 ML IV SCH (15:53)
[2019-02-26] MEDS: ACETAMINOPHEN TAB 325 MG TAB PO PRN ×2 (15:54→22:07)
[2019-02-26] MEDS: PANTOPRAZOLE 40 MG TABLET PO SCH (15:56)
--- NOTE | 2019-02-26 16:03 | PN ---
PROGRESS NOTE DATE OF SERVICE: 02/26/2019 This 58-year-old woman who was admitted with rectal bleeding is being closely monitored. The patient has a previous history of gastric ulcer. Gastroenterology and Surgery are following the patient closely. Endoscopy is being planned. No chest pain. No palpitations. No fever. On exam, alert and oriented x3. Pulse is 72, blood pressure 133/82, respiration 16, temperature 97.8, pulse ox 98% on room air. HEENT: Conjunctivae pale. NECK: No jugular venous distention. CARDIOVASCULAR SYSTEM: S1, S2 muffled. RESPIRATORY SYSTEM: Breath sounds diminished at the bases. No rhonchi. No crackles. ABDOMEN: Soft, non-tender. No mass palpable. LEGS: No edema. No swelling. NERVOUS SYSTEM: No focal deficit. LABS: WBC 3.5, hemoglobin 8.5, sodium 135. ASSESSMENT: 1. Acute gastrointestinal bleed with possible acute blood loss anemia. Rule out peptic ulcer disease. 2. Microcytosis. 3. Previous history of gastrointestinal bleed, stomach ulcers as well as gastric surgery. 4. History of alcoholism. 5. History of polysubstance abuse. 6. History of seizure disorder. 7. History of hypothyroidism. 8. History of bipolar, schizoaffective disorder. 9. History of Summer-Quiroz tear. 10.History of lupus. 11.Continued history of nicotine dependence. 12.History of cocaine abuse. RECOMMENDATIONS AND DISCUSSION: I recommend to continue current medications, continue with the monitoring, symptomatic treatment. Will await EGD and advance diet if the EGD is normal and hemoglobin is stable. Otherwise, please note that the patient is from [facility], where the patient will be returned after clearance from multiple consultants and once the patient is stable. Further recommendations to follow. MMODL / IJN: [id number] /
[2019-02-26] MEDS: QUEtiapine 200 MG TAB PO SCH (22:05)
[2019-02-27] MEDS: LEVOTHYROXINE 50 MCG TAB PO SCH (05:58)
[2019-02-27] MEDS: DEXTROSE 5%-0.9% NACL 1,000 ML IV SCH (05:59)
[2019-02-27 08:28] LABS: African American GFR (CKD) >90 (>60 ml/min/1.73 sqM); Anion Gap 5 mmol/L; Blood Urea Nitrogen 8 mg/dL (7-17); Calcium 8.7 mg/dL (8.4-10.2); Carbon Dioxide 24 mmol/L (22-30); Chloride 107 mmol/L (98-107); Glucose 71 mg/dL (74-99); Potassium 4.5 mmol/L (3.5-5.1); Sodium 136 mmol/L (137-145)
--- NOTE | 2019-02-27 09:20 | P.PN ---
Subjective Progress Note Date: 02/27/19 Principal diagnosis: GI bleed 58-year-old female admitted with acute GI bleed recent exploratory surgery for perforated gastric ulcer with underlying schizophrenia polysubstance abuse alcoholism. EGD yesterday reported superficial antral ulcers biopsies pending. No further episodes of bleeding. No CBC to review. Medical records from outside facility confirm patient did not have a colonoscopy only underwent EGD a month ago with no evidence of peptic ulcer disease. Objective - Vital Signs Vital signs: Vital Signs Temp 98.2 F 02/27/19 04:40 Pulse 59 L 02/27/19 04:40 Resp 16 02/27/19 04:40 BP 120/70 02/27/19 04:40 Pulse Ox 95 02/27/19 04:40 Intake & Output 02/26/19 02/27/19 02/27/19 18:59 06:59 18:59 Intake Total 2170 Balance 2170 Weight 74.843 kg Intake: IV 300 Intake, IV Titration 150 Amount Dextrose 5%-0.9% NaCl 1, 150 000 ml @ 75 mls/hr IV . [id number] MELISSA Rx#:[id number] Oral 1720 Other: Voiding Method Bedside Commode Bedside Commode # Voids 3 1 - Exam General appearance: The patient is alert, oriented, in no acute distress. HET: Head is normocephalic and atraumatic. Pupils are equal and reactive. Oropharynx is clear without lesions. Neck: Supple without lymphadenopathy. Trachea midline. Heart: S1 S2. Regular rate and rhythm. Lungs: No crackles or wheezes are heard. Abdomen: Soft, nontender, nondistended with bowel sounds. No peritoneal signs. No palpable organomegaly or masses. Extremities: Normal skin color and turgor. No cyanosis, rash, ulceration, clubbing, or edema. Radial and pedal pulses are 2/4 bilaterally. Neurological: No focal deficits. Strength and sensation are grossly intact. - Labs CBC & Chem 7: 02/26/19 08:53 02/27/19 07:57 Labs: Abnormal Lab Results - Last 24 Hours (Table) 02/26/19 02/26/19 02/27/19 Range/Units 08:53 08:53 07:57 WBC 3.5 L (3.8-10.6) k/uL RBC 3.47 L (3.80-5.40) m/uL Hgb 8.5 L (11.4-16.0) gm/dL Hct 28.2 L (34.0-46.0) % MCH 24.4 L (25.0-35.0) pg MCHC 30.1 L (31.0-37.0) g/dL RDW 17.6 H (11.5-15.5) % Sodium 135 L 136 L (137-145) mmol/L Glucose 70 L 71 L (74-99) mg/dL Assessment and Plan (1) GI bleed Narrative/Plan: 58-year-old female history of schizophrenia bipolar disorder polysubstance abuse alcoholism perforated gastric ulcer October 2018 status post repair at outside hospital followed by EGD a month ago, outside records reported no evidence of peptic ulcer disease. Patient reported she had a colonoscopy however medical record stated she did not. Patient is refusing colonoscopy at this time. Presently no active bleeding. Current Visit: Yes Status: Acute Code(s): K92.2 - GASTROINTESTINAL HEMORRHAGE, UNSPECIFIED SNOMED Code(s): 10179903 (2) Normocytic anemia Current Visit: Yes Status: Acute Code(s): D64.9 - ANEMIA, UNSPECIFIED SNOMED Code(s): 303298811 (3) Acute blood loss anemia Current Visit: Yes Status: Acute Code(s): D62 - ACUTE POSTHEMORRHAGIC ANEMIA SNOMED Code(s): 990075846 (4) History of ETOH abuse Current Visit: Yes Status: Acute Code(s): F10.11 - ALCOHOL ABUSE, IN REMISSION SNOMED Code(s): 728970381 Plan: 1. Agreeable for discharge. Outpatient colonoscopy advised at this time she is declining. Protonix 40 mg daily. Avoid alcohol. Discharge per medicine. Assessment and plan a care discussed with Dr. Zee.
[2019-02-27] MEDS: NICOTINE 14MG/24HR PATCH TRANSDERM SCH (10:21)
[2019-02-27] MEDS: busPIRone HCl 5 MG TAB PO SCH (10:23)
[2019-02-27] MEDS: OXcarbazepine 300 MG TAB PO SCH (10:23)
[2019-02-27] MEDS: PANTOPRAZOLE 40 MG TABLET PO SCH (10:23)
[2019-02-27] MEDS: THIAMINE 100 MG TAB PO SCH (10:23)
[2019-02-27] MEDS: GABAPENTIN 400 MG CAP PO SCH (10:23)
--- NOTE | 2019-02-27 10:39 | P.PN ---
Subjective Progress Note Date: 02/27/19 CHIEF COMPLAINT: Bright red blood per rectum HISTORY OF PRESENT ILLNESS: Patient seen and examined at the bedside. Patient underwent EGD yesterday revealing no active bleeding or evidence of old blood. Moderate gastritis with multiple superficial ulcers in the antrum. Mild duodenitis. Patient states her abdominal pain has resolved. She reports normal bowel movement this morning without blood. PHYSICAL EXAM: VITAL SIGNS: Reviewed. GENERAL: Well-developed in no acute distress. HEENT: No sclera icterus. Extraocular movements grossly intact. Moist buccal mucosa. Head is atraumatic, normocephalic. ABDOMEN: Soft. Nondistended. Nontender. Positive bowel sounds. NEUROLOGIC: Alert and oriented. Cranial nerves II through XII grossly intact. ASSESSMENT: 1. GI Bleed, patient presents with bright red blood per rectum 2. Acute blood loss anemia, secondary to above 3. History of polysubstance abuse including alcoholism and cocaine use PLAN: 1. Will defer any further endoscopic studies to GI team 2. Monitor hemoglobin 3. Diet as tolerated 4. Stable from a surgical perspective. We will sign off. Please reconsult if needed. Nurse practitioner note has been reviewed by physician. Signing provider agrees with the documented findings, assessment, and plan of care. Objective - Vital Signs Vital signs: Vital Signs Temp 98.2 F 02/27/19 04:40 Pulse 59 L 02/27/19 04:40 Resp 16 02/27/19 04:40 BP 120/70 02/27/19 04:40 Pulse Ox 95 02/27/19 04:40 Intake & Output 02/26/19 02/27/19 02/27/19 18:59 06:59 18:59 Intake Total 2170 Balance 2170 Weight 74.843 kg Intake: IV 300 Intake, IV Titration 150 Amount Dextrose 5%-0.9% NaCl 1, 150 000 ml @ 75 mls/hr IV . [id number] MELISSA Rx#:[id number] Oral 1720 Other: Voiding Method Bedside Commode Bedside Commode # Voids 3 1 - Labs CBC & Chem 7: 02/26/19 08:53 02/27/19 07:57 Labs: Abnormal Lab Results - Last 24 Hours (Table) 02/27/19 Range/Units 07:57 Sodium 136 L (137-145) mmol/L Glucose 71 L (74-99) mg/dL
[2019-02-27 12:18] VITALS: BP 103/61; PULSE 63; RESP 17; TEMP 98.8
--- NOTE | 2019-02-27 23:56 | DS ---
DISCHARGE SUMMARY FINAL DIAGNOSES: 1. Acute upper gastrointestinal bleed with acute blood loss anemia, status post esophagogastroduodenoscopy showing moderate gastritis with multiple superficial ulcerations in the antrum, possibly induced by non-steroidal anti- inflammatories. 2. Microcytosis. 3. Previous history of gastrointestinal bleed and stomach ulcers as well as gastric surgery elsewhere. 4. History of alcoholism. 5. History of polysubstance abuse. 6. History of seizure disorder. 7. History of hypothyroidism. 8. History of bipolar, schizoaffective disorder. 9. History of Summer-Quiroz tear. 10.History of lupus. 11.History of nicotine dependence. 12.History of cocaine abuse. DISCHARGE DISPOSITION: The patient will be discharged in stable condition with guarded prognosis. HISTORY OF PRESENT ILLNESS: This 58-year-old woman with a past medical history of multiple medical problems, as mentioned earlier, being followed by a primary physician in [place], was referred from [facility] with history of upper GI bleeding. The patient's hemoglobin was found to be 8.5, and the patient was monitored closely. Dr. Up performed EGD that showed gastritis and superficial ulcerations. The patient is extremely keen on and currently there is no active bleeding. The patient will be discharged in stable condition with guarded prognosis. On exam, vitals are stable. CARDIOVASCULAR: S1, S2. ABDOMEN: Soft. NERVOUS SYSTEM: No focal deficit. Recommend to stop the NSAIDs and use Tylenol instead. DISCHARGE ADVICE AND MEDICATIONS: 1. Diet is cardiac. 2. Activity limited until followup. 3. Follow up with primary physician in 2 to 3 days. CBC and BMP. 4. Follow up with GI as recommended. 5. Buspirone 15 mg p.o. b.i.d. 6. Chlor-Trimeton 4 mg q.4 p.r.n. 7. Multivitamins 1 p.o. daily. 8. Mylanta 30 mL q.4 p.r.n. 9. Neurontin 400 mg p.o. t.i.d. 10.Calcium with oyster shell 1 tablet p.o. b.i.d. 11.Seroquel 200 mg at bedtime. 12.Synthroid 125 mcg p.o. daily. 13.Tigan p.r.n. 14.Trileptal 600 mg p.o. t.i.d. 15.Tylenol Arthritis 650 mg q.4 p.r.n. 16.Vitamin B1 100 mg p.o. daily. 17.Vitamin B12 2.5 mg p.o. daily. 18.Zofran 8 mg q.6 p.r.n. 19.Iron 320 mg p.o. daily. Start in one week. 20.Protonix 40 mg p.o. b.i.d. MMODL / IJN: [id number] / [facility]
== END 2019-02-27 15:25 ==
LOC: EC 13:47 → 3NMEDONC 17:04
PROVIDERS: ADMIT Hospitalist; ATTEND Hospitalist
DX: K29.51 Unspecified chronic gastritis with bleeding (principal); D62 Acute posthemorrhagic anemia; K25.4 Chronic or unspecified gastric ulcer with hemorrhage; F10.20 Alcohol dependence, uncomplicated; G40.909 Epilepsy, unspecified, not intractable, without status epilepticus; E03.9 Hypothyroidism, unspecified; F25.9 Schizoaffective disorder, unspecified; F31.9 Bipolar disorder, unspecified; F14.10 Cocaine abuse, uncomplicated; F17.200 Nicotine dependence, unspecified, uncomplicated; K29.80 Duodenitis without bleeding; D50.9 Iron deficiency anemia, unspecified; Z87.11 Personal history of peptic ulcer disease; Z87.19 Personal history of other diseases of the digestive system; Z79.899 Other long term (current) drug therapy; Z79.890 Hormone replacement therapy; Z79.1 Long term (current) use of non-steroidal anti-inflammatories (NSAID); Z88.6 Allergy status to analgesic agent; Z90.49 Acquired absence of other specified parts of digestive tract
CPT/HCPCS: 96375; 96374; 99285; 36415; 86900; 86901; 88305; 80053; 80048 ×2; 83605; 83735; 85025 ×2; 85610; 85730; 86850; 74018; 74177; 43239; G0378 ×3; G0480; J2060; J2001; J2704; C9113; Q9967; 80320

== ENCOUNTER 2022-02-28 15:56 | Inpatient (IN) | payer MEDICARE, OTHER ==
[2022-02-28] MEDS ORDERED: LORazepam 2 MG/ML INJ IV STA ×2 (16:14→17:42)
--- NOTE | 2022-02-28 16:19 | ED ---
General Adult HPI - General Chief complaint: Chest Pain Stated complaint: chest pain Time Seen by Provider: 02/28/22 16:00 Source: patient, EMS, RN notes reviewed, old records reviewed Mode of arrival: EMS Limitations: no limitations - History of Present Illness Initial comments: This is a 61-year-old female with past medical history significant for alc oholism. Patient is a very poor historian quite often she answers I don't note questions asked relative to her past medical history and her current condition. Patient states she's had chest pain on the left side of her chest which is reproducible to palpation for about a year. Patient states it comes and goes. Patient states his been ongoing since early this morning. Patient states that sharp in nature. Patient denies any difficulty breathing or shortness of breath. Patient denies any recent fever chills or cough. Patient states she stopped drinking this morning at 3 AM and went to [place] to get rehabilitated. Patient states she used to use cocaine but hasn't used that in years. Patient denies any abdominal pain patient denies nausea vomiting diarrhea she denies lightheadedness or dizziness. - Related Data Home Medications Medication Instructions Recorded Confirmed QUEtiapine [SEROquel] 100 mg PO TID 02/25/19 02/28/22 Acetaminophen Tab [Tylenol Tab] 1,000 mg PO Q6H PRN 02/28/22 02/28/22 Cholestyramine (with Sugar) 4 gm PO BID PRN 02/28/22 02/28/22 [Questran] Diphenox-Atrop 2.5-0.025 mg 1 tab PO BID PRN 02/28/22 02/28/22 [Lomotil] Ketoconazole 2% Shampoo [Nizoral] 1 applic TOPICAL Q7D 02/28/22 02/28/22 Levothyroxine Sodium [Synthroid] 25 mcg PO DAILY 02/28/22 02/28/22 Levothyroxine Sodium [Synthroid] 200 mcg PO DAILY 02/28/22 02/28/22 Loperamide HCl [Imodium A-D] 2 - 4 mg PO QID PRN 02/28/22 02/28/22 OXcarbazepine [Trileptal] 300 mg PO BID 02/28/22 02/28/22 Omeprazole 20 mg PO DAILY 02/28/22 02/28/22 QUEtiapine [SEROquel] 400 mg PO HS 02/28/22 02/28/22 Selenium Sulfide Lotion 2.5% Lotion 1 applic TOPICAL DAILY 02/28/22 02/28/22 Triamcinolone 0.1% Cream [Kenalog 1 applic TOPICAL BID PRN 02/28/22 02/28/22 0.1% Cream] busPIRone HCL [Buspar] 30 mg PO BID 02/28/22 02/28/22 diphenhydrAMINE [Benadryl] 25 mg PO BID PRN 02/28/22 02/28/22 hydrOXYzine HCL [Atarax] 25 mg PO BID 02/28/22 02/28/22 Allergies Allergy/AdvReac Type Severity Reaction Status Date / Time ibuprofen [From Motrin] AdvReac bleeding Verified 02/28/22 17:19 Review of Systems ROS Statement: Those systems with pertinent positive or pertinent negative responses have been documented in the HPI. ROS Other: All systems not noted in ROS Statement are negative. Past Medical History Past Medical History: GI Bleed, Seizure Disorder, Thyroid Disorder Additional Past Medical History / Comment(s): Patient poor historian, history gained from [place] paperwork: Schizophrenia, bipolar, EtOh abuse, cocaine abuse, Gi ulcers, Summer-Quiroz tear, anemia, hemorrhoids, lupus History of Any Multi-Drug Resistant Organisms: None Reported Past Surgical History: Bowel Resection Additional Past Surgical History / Comment(s): Bowel resection December 2018 Past Anesthesia/Blood Transfusion Reactions: No Reported Reaction Past Psychological History: Bipolar, Schizoaffective Disorder Smoking Status: Current every day smoker Past Alcohol Use History: Abuse, Daily Past Drug Use History: Cocaine General Exam - General Exam Comments Initial Comments: GENERAL: Patient is well-developed and well-nourished. Patient is nontoxic and well- hydrated and is in mild distress. ENT: Neck is soft and supple. No significant lymphadenopathy is noted. Oropharynx is clear. Moist mucous membranes. Neck has full range of motion without eliciting any pain. EYES: The sclera were anicteric and conjunctiva were pink and moist. Extraocular movements were intact and pupils were equal round and reactive to light. Eyelids were unremarkable. PULMONARY: Unlabored respirations. Good breath sounds bilaterally. No audible rales rhonchi or wheezing was noted. CARDIOVASCULAR: There is a regular rate and rhythm without any murmurs gallops or rubs. ABDOMEN: Soft and nontender with normal bowel sounds. SKIN: Skin is clear with no lesions or rashes and otherwise unremarkable. NEUROLOGIC: Patient is alert and oriented x3. Cranial nerves II through XII are grossly intact. Motor and sensory are also intact. Stuttering speech patient states this is a condition she's had for years and doesn't know why. Symmetrical smile. MUSCULOSKELETAL: Normal extremities with adequate strength and full range of motion. LYMPHATICS: No significant lymphadenopathy is noted PSYCHIATRIC: Normal psychiatric evaluation. Limitations: no limitations Course Vital Signs 02/28/22 02/28/22 16:00 17:21 Temperature 97.6 F Pulse Rate 87 84 Respiratory 18 18 Rate Blood Pressure 126/98 O2 Sat by Pulse 100 98 Oximetry Medical Decision Making - Medical Decision Making Chest x-ray shows no acute abnormality. EKG shows sinus rhythm with occasional PVC at 82 bpm OR interval is 154 QRS is 78 QT interval is 373 QTC is 412. Patient's EKG shows no ST segment elevation or depression. I spoke with Dr. Ji of [facility] physician's he agreed to admit the patient admitted the patient I wrote admitting orders. - Lab Data Result diagrams: 02/28/22 16:24 02/28/22 16:24 Lab Results 02/28/22 02/28/22 02/28/22 Range/Units 16:24 16:24 16:24 WBC 2.9 L (3.8-10.6) k/uL RBC 3.78 L (3.80-5.40) m/uL Hgb 9.8 L (11.4-16.0) gm/dL Hct 31.0 L (34.0-46.0) % MCV 82.1 (80.0-100.0) fL MCH 25.9 (25.0-35.0) pg MCHC 31.6 (31.0-37.0) g/dL RDW 25.6 H (11.5-15.5) % Plt Count 120 L (150-450) k/uL MPV 7.3 Neutrophils % (Manual) 39 % Band Neuts % (Manual) 2 % Lymphocytes % (Manual) 52 % Monocytes % (Manual) 7 % Neutrophils # (Manual) 1.10 L (1.3-7.7) k/uL Lymphocytes # (Manual) 1.51 (1.0-4.8) k/uL Monocytes # (Manual) 0.20 (0-1.0) k/uL Nucleated RBCs 0 (0-0) /100 WBC Manual Slide Review Performed Hypochromasia Slight Poikilocytosis (manual Present Anisocytosis Marked Microcytosis Slight Target Cells Present Ovalocytes Present PT 10.6 (9.0-12.0) sec INR 1.0 (<1.2) APTT 19.9 L (22.0-30.0) sec Sodium 135 L (137-145) mmol/L Potassium 4.8 (3.5-5.1) mmol/L Chloride 102 (98-107) mmol/L Carbon Dioxide 18 L (22-30) mmol/L Anion Gap 15 mmol/L BUN 13 (7-17) mg/dL Creatinine 0.67 (0.52-1.04) mg/dL Est GFR (CKD-EPI)AfAm >90 (>60 ml/min/1.73 sqM) Est GFR (CKD-EPI)NonAf >90 (>60 ml/min/1.73 sqM) Glucose 66 L (74-99) mg/dL Calcium 9.0 (8.4-10.2) mg/dL Magnesium 1.5 L (1.6-2.3) mg/dL Total Bilirubin 0.8 (0.2-1.3) mg/dL AST 141 H (14-36) U/L ALT 49 H (4-34) U/L Alkaline Phosphatase 91 (38-126) U/L Troponin I (0.000-0.034) ng/mL Total Protein 7.6 (6.3-8.2) g/dL Albumin 4.9 (3.5-5.0) g/dL Serum Alcohol 43 mg/dL 02/28/22 Range/Units 16:24 WBC (3.8-10.6) k/uL RBC (3.80-5.40) m/uL Hgb (11.4-16.0) gm/dL Hct (34.0-46.0) % MCV (80.0-100.0) fL MCH (25.0-35.0) pg MCHC (31.0-37.0) g/dL RDW (11.5-15.5) % Plt Count (150-450) k/uL MPV Neutrophils % (Manual) % Band Neuts % (Manual) % Lymphocytes % (Manual) % Monocytes % (Manual) % Neutrophils # (Manual) (1.3-7.7) k/uL Lymphocytes # (Manual) (1.0-4.8) k/uL Monocytes # (Manual) (0-1.0) k/uL Nucleated RBCs (0-0) /100 WBC Manual Slide Review Hypochromasia Poikilocytosis (manual Anisocytosis Microcytosis Target Cells Ovalocytes PT (9.0-12.0) sec INR (<1.2) APTT (22.0-30.0) sec Sodium (137-145) mmol/L Potassium (3.5-5.1) mmol/L Chloride (98-107) mmol/L Carbon Dioxide (22-30) mmol/L Anion Gap mmol/L BUN (7-17) mg/dL Creatinine (0.52-1.04) mg/dL Est GFR (CKD-EPI)AfAm (>60 ml/min/1.73 sqM) Est GFR (CKD-EPI)NonAf (>60 ml/min/1.73 sqM) Glucose (74-99) mg/dL Calcium (8.4-10.2) mg/dL Magnesium (1.6-2.3) mg/dL Total Bilirubin (0.2-1.3) mg/dL AST (14-36) U/L ALT (4-34) U/L Alkaline Phosphatase (38-126) U/L Troponin I <0.012 (0.000-0.034) ng/mL Total Protein (6.3-8.2) g/dL Albumin (3.5-5.0) g/dL Serum Alcohol mg/dL Disposition Clinical Impression: Chest pain, Hypomagnesemia, Alcohol withdrawal Disposition: ADMITTED IP TO THIS [facility] Referrals: Nonstaff,Physician [Primary Care Provider] - 1-2 days Time of Disposition: 18:40
[2022-02-28 16:32] LABS: Anisocytosis Marked; HGB 9.8 gm/dL (11.4-16.0); Hypochromasia Slight; MCH 25.9 pg (25.0-35.0); MCHC 31.6 g/dL (31.0-37.0); MCV 82.1 fL (80.0-100.0); Mean Platelet Volume 7.3; Microcytosis Slight; Platelet Count 120 k/uL (150-450); RBC 3.78 m/uL (3.80-5.40); WBC 2.9 k/uL (3.8-10.6)
[2022-02-28 16:43] LABS: ALT 49 U/L (4-34); AST 141 U/L (14-36); African American GFR (CKD) >90 (>60 ml/min/1.73 sqM); Albumin 4.9 g/dL (3.5-5.0); Alcohol 43 mg/dL; Alkaline Phosphatase 91 U/L (38-126); Anion Gap 15 mmol/L; Blood Urea Nitrogen 13 mg/dL (7-17); Carbon Dioxide 18 mmol/L (22-30); Chloride 102 mmol/L (98-107); Glucose 66 mg/dL (74-99); Magnesium 1.5 mg/dL (1.6-2.3); Non-African American GFR(CKD) >90 (>60 ml/min/1.73 sqM); Potassium 4.8 mmol/L (3.5-5.1); Sodium 135 mmol/L (137-145); Total Bilirubin 0.8 mg/dL (0.2-1.3); Total Protein 7.6 g/dL (6.3-8.2)
--- NOTE | 2022-02-28 16:47 | XR ---
EXAMINATION TYPE: XR chest 2V DATE OF EXAM: 02/28/2022 COMPARISON: NONE HISTORY: Chest pain TECHNIQUE: 2 views FINDINGS: Heart is normal. Lungs are clear of consolidation. There are no hilar masses. Costophrenic angles are clear. There are chest leads. Bony thorax is intact. IMPRESSION: No active cardiopulmonary disease. Normal heart.
[2022-02-28 17:16] LABS: RDW 25.6 % (11.5-15.5)
[2022-02-28] MEDS ORDERED: MAGNESIUM SULFATE-D5W PMX 1 GM in DEXTROSE/WATER 1 100ML.BAG IVPB ONE (17:33)
[2022-02-28 17:35] LABS: Prothrombin Time 10.6 sec (9.0-12.0)
[2022-02-28 17:43] LABS: Band Neutrophils % 2 %; Lymphocytes # (M) 1.51 k/uL (1.0-4.8); Neutrophils % (M) 39 %; Nucleated Red Blood Cells 0 /100 WBC (0-0); Poikilocytosis (M) Present; Target Cells Present; Total Cells Counted 100
[2022-02-28 17:47] LABS: Partial Thromboplastin Time 19.9 sec (22.0-30.0)
[2022-02-28 18:01] LABS: Ovalocytes Present
[2022-02-28] MEDS ORDERED: NITROGLYCERIN SL TABS 0.4 MG TAB SUBLINGUAL PRN (18:41)
[2022-02-28] MEDS ORDERED: THIAMINE 100 MG/ML 2 ML VIAL IM STA (18:45)
[2022-02-28] MEDS ORDERED: LORazepam 2 MG/ML INJ IV PRN ×3 (18:45)
[2022-02-28] MEDS ORDERED: LOPERAMIDE 2 MG CAP PO PRN (18:53)
[2022-02-28] MEDS ORDERED: CALCIUM CARBONATE 500 MG CHEWABLE PO PRN (18:53)
[2022-02-28] MEDS ORDERED: NALOXONE 0.4 MG/ML 1 ML VIAL IV PRN (18:53)
[2022-02-28] MEDS ORDERED: MAGNESIUM HYDROXIDE 2,400 MG/10 ML CUP PO PRN (18:53)
[2022-02-28] MEDS ORDERED: ONDANSETRON 4 MG/2 ML VIAL IVP PRN (18:53)
--- NOTE | 2022-02-28 18:56 | P.HPIM ---
History of Present Illness H&P Date: 02/28/22 Admitted to the hospital with chest pain has been going for the last day or 2 the patient has been feeling okay but the patient has been feeling weak and having tremors patient is a heavy drinker Review of systems and systems has been reviewed all negative and positive findings as per history of present illness Constitutional: No acute distress, conversant, pleasant Eyes: Anicteric sclerae, moist conjunctiva, no lid-lag PERRLA ENMT: NC/AT Oropharynx clear, no erythema, exudates Neck: Supple, FROM, no masses, or JVD No carotid bruits No thyromegaly Lungs: Clear to auscultation Clear to percussion Normal respiratory effort, no accessory muscle use Cardiovascular: Heart regular in rate and rhythm, No murmurs, gallops, or rubs No peripheral edema Abdominal: Soft Nontender, no guarding, rebound or rigidity Abdomen moving with respiration Normoactive bowel sounds No hepatomegaly, No splenomegaly No palpable mass No abdominal wall hernia noted Skin: Normal temperature, tone, texture, turgor No induration No subcutaneous nodules No rash, lesions No ulcers Extremities: No digital cyanosis No clubbing Pedal pulses intact and symmetrical Radial pulses intact and symmetrical Normal gait and station No calf tenderness Psychiatric:Alert and oriented to person, place and time Appropriate affect Intact judgement Neuro: Muscles Strength 5/5 in all 4 extremities Sensation to light touch g rossly present throughout Cranial nerves II-XII grossly intact No focal sensory deficits Alcohol withdrawals we'll start the patient on Ativan Chest pain with typical and atypical features would put the patient on telemetry we'll check cardiac enzymes and observe overnight Hypertension Past Medical History Past Medical History: GI Bleed, Seizure Disorder, Thyroid Disorder Additional Past Medical History / Comment(s): Patient poor historian, history gained from [place] paperwork: Schizophrenia, bipolar, EtOh abuse, cocaine abuse, Gi ulcers, Summer-Quiroz tear, anemia, hemorrhoids, lupus History of Any Multi-Drug Resistant Organisms: None Reported Past Surgical History: Bowel Resection Additional Past Surgical History / Comment(s): Bowel resection December 2018 Past Anesthesia/Blood Transfusion Reactions: No Reported Reaction Past Psychological History: Bipolar, Schizoaffective Disorder Smoking Status: Current every day smoker Past Alcohol Use History: Abuse, Daily Past Drug Use History: Cocaine Medications and Allergies Home Medications Medication Instructions Recorded Confirmed Type QUEtiapine [SEROquel] 100 mg PO TID 02/25/19 02/28/22 History Acetaminophen Tab [Tylenol Tab] 1,000 mg PO Q6H PRN 02/28/22 02/28/22 History Cholestyramine (with Sugar) 4 gm PO BID PRN 02/28/22 02/28/22 History [Questran] Diphenox-Atrop 2.5-0.025 mg 1 tab PO BID PRN 02/28/22 02/28/22 History [Lomotil] Ketoconazole 2% Shampoo [Nizoral] 1 applic TOPICAL Q7D 02/28/22 02/28/22 History Levothyroxine Sodium [Synthroid] 25 mcg PO DAILY 02/28/22 02/28/22 History Levothyroxine Sodium [Synthroid] 200 mcg PO DAILY 02/28/22 02/28/22 History Loperamide HCl [Imodium A-D] 2 - 4 mg PO QID PRN 02/28/22 02/28/22 History OXcarbazepine [Trileptal] 300 mg PO BID 02/28/22 02/28/22 History Omeprazole 20 mg PO DAILY 02/28/22 02/28/22 History QUEtiapine [SEROquel] 400 mg PO HS 02/28/22 02/28/22 History Selenium Sulfide Lotion 2.5% Lotion 1 applic TOPICAL DAILY 02/28/22 02/28/22 History Triamcinolone 0.1% Cream [Kenalog 1 applic TOPICAL BID PRN 02/28/22 02/28/22 History 0.1% Cream] busPIRone HCL [Buspar] 30 mg PO BID 02/28/22 02/28/22 History diphenhydrAMINE [Benadryl] 25 mg PO BID PRN 02/28/22 02/28/22 History hydrOXYzine HCL [Atarax] 25 mg PO BID 02/28/22 02/28/22 History Allergies Allergy/AdvReac Type Severity Reaction Status Date / Time ibuprofen [From Motrin] AdvReac bleeding Verified 02/28/22 17:19 Physical Exam Vitals: Vital Signs Temp Pulse Resp BP Pulse Ox 02/28/22 17:21 84 18 98 02/28/22 16:00 97.6 F 87 18 126/98 100 Intake and Output 02/28/22 02/28/22 02/28/22 06:59 14:59 22:59 Other: Weight 74.843 kg Results CBC & Chem 7: 02/28/22 16:24 02/28/22 16:24 Labs: Abnormal Lab Results - Last 24 Hours (Table) 02/28/22 02/28/22 02/28/22 Range/Units 16:24 16:24 16:24 WBC 2.9 L (3.8-10.6) k/uL RBC 3.78 L (3.80-5.40) m/uL Hgb 9.8 L (11.4-16.0) gm/dL Hct 31.0 L (34.0-46.0) % RDW 25.6 H (11.5-15.5) % Plt Count 120 L (150-450) k/uL Neutrophils # (Manual) 1.10 L (1.3-7.7) k/uL APTT 19.9 L (22.0-30.0) sec Sodium 135 L (137-145) mmol/L Carbon Dioxide 18 L (22-30) mmol/L Glucose 66 L (74-99) mg/dL Magnesium 1.5 L (1.6-2.3) mg/dL AST 141 H (14-36) U/L ALT 49 H (4-34) U/L
[2022-02-28] MEDS: hydrOXYzine HCL 25 MG TAB PO SCH (21:36)
[2022-03-01] MEDS: QUEtiapine 100 MG TAB PO SCH ×4 (01:42→21:37)
[2022-03-01] MEDS: NITROGLYCERIN OINT 1 INCH/GM PACKET TOPICAL SCH ×3 (03:07→08:03)
[2022-03-01] MEDS: LEVOTHYROXINE 25 MCG TAB PO SCH (08:02)
[2022-03-01] MEDS: PANTOPRAZOLE 40 MG TABLET PO SCH (08:02)
[2022-03-01] MEDS: THIAMINE 100 MG TAB PO SCH ×2 (08:03→18:16)
[2022-03-01] MEDS: ACETAMINOPHEN TAB 325 MG TAB PO PRN ×2 (08:14→22:29)
[2022-03-01 08:31] LABS: Anisocytosis Marked; Basophils % (A) 0 %; Eosinophils # (A) 0.1 k/uL (0-0.7); Eosinophils % (A) 2 %; HCT 30.9 % (34.0-46.0); HGB 9.4 gm/dL (11.4-16.0); Hypochromasia Slight; Lymphocytes # (A) 1.1 k/uL (1.0-4.8); Lymphocytes % (A) 42 %; MCH 25.6 pg (25.0-35.0); MCHC 30.3 g/dL (31.0-37.0); MCV 84.5 fL (80.0-100.0); Macrocytosis Slight; Mean Platelet Volume 7.6; Microcytosis Slight; Monocytes # (A) 0.2 k/uL (0-1.0); Monocytes % (A) 9 %; Neutrophils # (A) 1.2 k/uL (1.3-7.7); Neutrophils % (A) 44 %; Platelet Count 115 k/uL (150-450); RBC 3.65 m/uL (3.80-5.40); RDW 24.9 % (11.5-15.5); WBC 2.7 k/uL (3.8-10.6)
[2022-03-01] MEDS ORDERED: ASPIRIN 325 MG TAB PO SCH (09:00)
[2022-03-01 09:02] LABS: ALT 39 U/L (4-34); AST 99 U/L (14-36); African American GFR (CKD) >90 (>60 ml/min/1.73 sqM); Albumin 4.3 g/dL (3.5-5.0); Alkaline Phosphatase 78 U/L (38-126); Anion Gap 11 mmol/L; Blood Urea Nitrogen 18 mg/dL (7-17); Carbon Dioxide 25 mmol/L (22-30); Chloride 98 mmol/L (98-107); Glucose 69 mg/dL (74-99); Non-African American GFR(CKD) >90 (>60 ml/min/1.73 sqM); Potassium 4.2 mmol/L (3.5-5.1); Sodium 134 mmol/L (137-145); Total Protein 6.7 g/dL (6.3-8.2)
[2022-03-01 09:48] LABS: Calcium 8.8 mg/dL (8.4-10.2)
[2022-03-01] MEDS: METOPROLOL TARTRATE 12.5 MG TAB PO SCH ×2 (10:53→21:38)
[2022-03-01] MEDS: hydrOXYzine HCL 25 MG TAB PO SCH ×2 (11:40→21:38)
--- NOTE | 2022-03-01 12:13 | P.CRDCN ---
History of Present Illness History of present illness: HISTORY OF PRESENTING ILLNESS This is a pleasant 61-year-old female past medical history significant for hypothyroidism, alcohol abuse, cocaine use, schizophrenia, bipolar, perforated gastric ulcer, GI bleed, gastritis, chronic nicotine dependence. She does not follow with geospatial specialist. She denies history of cardiac disease.We have been asked to see in consultation for chest pain. Patient presents emergency department with complaints of abdominal pain, left sided chest pain with radia tion to her back. It is aggravated by movement and palpation to the chest and the epigastric abdominal area. She also endorses nausea. She denies any shortness of breath, diaphoresis, palpitations, lightheadedness, dizziness, syncope or near syncope. Patient states that she stopped drinking yesterday around 3 AM and went to [place] for rehab. She denies any history of CAD, VA, stroke, diabetes, hypertension, dyslipidemia. She denies any family history of heart disease. DIAGNOSTICS EKG reveals sinus rhythm, heart rate 82, PVC, nonspecific T-wave abnormalities. No acute ischemia noted. Telemetry tracings indicate sinus mechanism Chest xray no acute cardiopulmonary process Laboratory reviewed, troponin negative 3, sodium 134, potassium 4.2, BUN 18, serum creatinine 0.6, WBC 2.7, hemoglobin 9.4, platelets 115. Current home medications include hydroxyzine, Benadryl, BuSpar, Seroquel, omeprazole, Trileptal, Imodium, Synthroid, Lomotil, Questran, and Tylenol REVIEW OF SYSTEMS At the time of my exam: CONSTITUTIONAL: Denies fever or chills. CARDIOVASCULAR: + reproducible chest pain, Denies shortness of breath, orthopnea, PND or palpitations. RESPIRATORY: Denies cough. GASTROINTESTINAL: +abdominal pain, Denies diarrhea, constipation, +nausea Cisco vomiting. MUSCULOSKELETAL: Denies myalgias. NEUROLOGIC: Denies numbness, tingling, headache or weakness. ENDOCRINE: Denies fatigue, weight change, polydipsia or polyurina. GENITOURINARY: Denies burning, hematuria or urgency with micturation. HEMATOLOGIC: + history of anemia PHYSICAL EXAMINATION Blood pressure 115/70, heart rate 89, afebrile, oxygen saturation 99% on room air CONSTITUTIONAL: No apparent distress. HEENT: Head is normocephalic. Pupils are equal, round. Sclerae anicteric. Mucous membranes of the mouth are moist. No JVD. No carotid bruit. CHEST EXAMINATION: Lungs are clear to auscultation. There is chest wall tenderness is noted on palpation to the left side and center of chest HEART EXAMINATION: Regular rate and rhythm. S1, S2 heard. No murmurs, gallops or rub. ABDOMEN: Soft, Tender to palpation to epigastic area. Positive bowel sounds. EXTREMITIES: 2+ peripheral pulses, no lower extremity edema and no calf tenderness. SKIN: warm, dry NEUROLOGIC EXAMINATION: Patient is awake, alert and oriented x3. ASSESSMENT Chest pain, reproducible, does not appear to be cardiac in etiology Abdominal pain Alcohol abuse Alcohol withdrawal Hypothyroidism Alcohol abuse Cocaine use Report history of Schizophrenia and Bipolar History of perforated gastric ulcer History of GI bleed History of gastritis Chronic nicotine dependence PLAN An acute coronary event has been ruled out with no EKG evidence of ischemia and negative cardiac enzymes. Start low dose beta rosanna Do not recommend stress testing at this time, this can be considered as an outpatient Rest of inpatient management per primary. We'll follow the patient as needed. Please reconsult if needed. Thank you kindly for this consultation. Nurse practitioner note has been reviewed by physician. Signing provider agrees with the documented findings, assessment, and plan of care. Past Medical History Past Medical History: GI Bleed, Seizure Disorder, Thyroid Disorder Additional Past Medical History / Comment(s): Patient poor historian, history gained from [place] paperwork: Schizophrenia, bipolar, EtOh abuse, cocaine abuse, Gi ulcers, Summer-Quiroz tear, anemia, hemorrhoids, lupus History of Any Multi-Drug Resistant Organisms: None Reported Past Surgical History: Bowel Resection Additional Past Surgical History / Comment(s): Bowel resection December 2018 Past Anesthesia/Blood Transfusion Reactions: No Reported Reaction Past Psychological History: Bipolar, Schizoaffective Disorder Smoking Status: Current every day smoker Past Alcohol Use History: Abuse, Daily Past Drug Use History: Cocaine Medications and Allergies Home Medications Medication Instructions Recorded Confirmed Type QUEtiapine [SEROquel] 100 mg PO TID 02/25/19 02/28/22 History Acetaminophen Tab [Tylenol Tab] 1,000 mg PO Q6H PRN 02/28/22 02/28/22 History Cholestyramine (with Sugar) 4 gm PO BID PRN 02/28/22 02/28/22 History [Questran] Diphenox-Atrop 2.5-0.025 mg 1 tab PO BID PRN 02/28/22 02/28/22 History [Lomotil] Ketoconazole 2% Shampoo [Nizoral] 1 applic TOPICAL Q7D 02/28/22 02/28/22 History Levothyroxine Sodium [Synthroid] 25 mcg PO DAILY 02/28/22 02/28/22 History Levothyroxine Sodium [Synthroid] 200 mcg PO DAILY 02/28/22 02/28/22 History Loperamide HCl [Imodium A-D] 2 - 4 mg PO QID PRN 02/28/22 02/28/22 History OXcarbazepine [Trileptal] 300 mg PO BID 02/28/22 02/28/22 History Omeprazole 20 mg PO DAILY 02/28/22 02/28/22 History QUEtiapine [SEROquel] 400 mg PO HS 02/28/22 02/28/22 History Selenium Sulfide Lotion 2.5% Lotion 1 applic TOPICAL DAILY 02/28/22 02/28/22 History Triamcinolone 0.1% Cream [Kenalog 1 applic TOPICAL BID PRN 02/28/22 02/28/22 History 0.1% Cream] busPIRone HCL [Buspar] 30 mg PO BID 02/28/22 02/28/22 History diphenhydrAMINE [Benadryl] 25 mg PO BID PRN 02/28/22 02/28/22 History hydrOXYzine HCL [Atarax] 25 mg PO BID 02/28/22 02/28/22 History Allergies Allergy/AdvReac Type Severity Reaction Status Date / Time ibuprofen [From Motrin] AdvReac bleeding Verified 02/28/22 17:19 Physical Exam Vitals: Vital Signs Temp Pulse Resp BP Pulse Ox 03/01/22 11:44 89 16 115/70 99 03/01/22 10:46 83 16 105/72 99 03/01/22 09:05 75 16 117/81 98 03/01/22 07:49 97.4 F L 74 16 117/81 98 02/28/22 23:00 88 16 120/86 100 02/28/22 19:25 87 16 135/83 02/28/22 19:00 80 18 98 02/28/22 17:21 84 18 98 02/28/22 16:00 97.6 F 87 18 126/98 100 Intake and Output 02/28/22 03/01/22 03/01/22 22:59 06:59 14:59 Other: Weight 74.843 kg Results 03/01/22 07:23 03/01/22 07:23 Cardiac Enzymes 02/28/22 02/28/22 02/28/22 Range/Units 16:24 16:24 22:10 AST 141 H (14-36) U/L Troponin I <0.012 <0.012 (0.000-0.034) ng/mL 03/01/22 03/01/22 Range/Units 00:56 07:23 AST 99 H (14-36) U/L Troponin I 0.013 (0.000-0.034) ng/mL Coagulation 02/28/22 Range/Units 16:24 PT 10.6 (9.0-12.0) sec APTT 19.9 L (22.0-30.0) sec CBC 02/28/22 03/01/22 Range/Units 16:24 07:23 WBC 2.9 L 2.7 L (3.8-10.6) k/uL RBC 3.78 L 3.65 L (3.80-5.40) m/uL Hgb 9.8 L 9.4 L (11.4-16.0) gm/dL Hct 31.0 L 30.9 L (34.0-46.0) % Plt Count 120 L 115 L (150-450) k/uL Comprehensive Metabolic Panel 02/28/22 03/01/22 Range/Units 16:24 07:23 Sodium 135 L 134 L (137-145) mmol/L Potassium 4.8 4.2 (3.5-5.1) mmol/L Chloride 102 98 (98-107) mmol/L Carbon Dioxide 18 L 25 (22-30) mmol/L BUN 13 18 H (7-17) mg/dL Creatinine 0.67 0.69 (0.52-1.04) mg/dL Glucose 66 L 69 L (74-99) mg/dL Calcium 9.0 8.8 (8.4-10.2) mg/dL AST 141 H 99 H (14-36) U/L ALT 49 H 39 H (4-34) U/L Alkaline Phosphatase 91 78 (38-126) U/L Total Protein 7.6 6.7 (6.3-8.2) g/dL Albumin 4.9 4.3 (3.5-5.0) g/dL Current Medications Generic Name Dose Route Start Last Admin Trade Name Freq PRN Reason Stop Dose Admin Acetaminophen 650 mg 02/28/22 18:53 03/01/22 08:14 Acetaminophen Tab 325 Mg Tab PO 650 mg Q6HR PRN Administration Mild Pain or Fever > 100.5 Calcium Carbonate/Glycine 1,000 mg 02/28/22 18:53 Calcium Carbonate 500 Mg Chewable PO Q4HR PRN Dyspepsia Hydroxyzine HCl 25 mg 02/28/22 21:00 03/01/22 11:40 Hydroxyzine Hcl 25 Mg Tab PO 25 mg BID MELISSA Administration Levothyroxine Sodium 25 mcg 03/01/22 06:30 03/01/22 08:02 Levothyroxine 25 Mcg Tab PO 25 mcg DAILY@0630 MELISSA Administration Loperamide HCl 2 mg 02/28/22 18:53 Loperamide 2 Mg Cap PO Q2HR PRN Loose Stool Lorazepam 1 mg 02/28/22 18:45 03/01/22 08:03 Lorazepam 2 Mg/Ml Inj IV 1 mg Q2HR PRN Administration CIWA 8 or 9 Lorazepam 1 mg 02/28/22 18:45 02/28/22 20:22 Lorazepam 2 Mg/Ml Inj IV 1 mg Q1HR PRN Administration CIWA 10 to 15 Lorazepam 2 mg 02/28/22 18:45 Lorazepam 2 Mg/Ml Inj IV 03/02/22 18:45 Q10M PRN CIWA 16 or higher Magnesium Hydroxide 2,400 mg 02/28/22 18:53 Magnesium Hydroxide 2,400 Mg/10 Ml Cup PO DAILY PRN Constipation Metoprolol Tartrate 12.5 mg 03/01/22 09:45 03/01/22 10:53 Metoprolol Tartrate 12.5 Mg Tab PO Not Given BID MELISSA Naloxone HCl 0.2 mg 02/28/22 18:53 Naloxone 0.4 Mg/Ml 1 Ml Vial IV Q2M PRN Opioid Reversal Nitroglycerin 0.4 mg 02/28/22 18:41 Nitroglycerin Sl Tabs 0.4 Mg Tab SUBLINGUAL Q5M PRN Chest Pain Ondansetron HCl 4 mg 02/28/22 18:53 Ondansetron 4 Mg/2 Ml Vial IVP Q8HR PRN Nausea And Vomiting Pantoprazole Sodium 40 mg 03/01/22 07:30 03/01/22 08:02 Pantoprazole 40 Mg Tablet PO 40 mg [id number] MELISSA Administration Quetiapine Fumarate 100 mg 02/28/22 22:00 03/01/22 08:03 Quetiapine 100 Mg Tab PO 100 mg TID MELISSA Administration Thiamine HCl 100 mg 03/01/22 07:30 03/01/22 08:03 Thiamine 100 Mg Tab PO 100 mg BID-W/MEALS MELISSA Administration Intake and Output 02/28/22 03/01/22 03/01/22 22:59 06:59 14:59 Other: Weight 74.843 kg 03/01/22 07:23 03/01/22 07:23
--- NOTE | 2022-03-01 14:24 | P.PN ---
Subjective Progress Note Date: 03/01/22 Principal diagnosis: Still actively withdrawing from alcohol patient also complains of abdominal pain abdominal pain abdominal pain we'll check computed tomography scan of the abdom en and pelvis Admitted to the hospital with chest pain has been going for the last day or 2 the patient has been feeling okay but the patient has been feeling weak and having tremors patient is a heavy drinker Review of systems and systems has been reviewed all negative and positive findings as per history of present illness Constitutional: No acute distress, conversant, pleasant Eyes: Anicteric sclerae, moist conjunctiva, no lid-lag PERRLA ENMT: NC/AT Oropharynx clear, no erythema, exudates Neck: Supple, FROM, no masses, or JVD No carotid bruits No thyromegaly Lungs: Clear to auscultation Clear to percussion Normal respiratory effort, no accessory muscle use Cardiovascular: Heart regular in rate and rhythm, No murmurs, gallops, or rubs No peripheral edema Abdominal: Soft Nontender, no guarding, rebound or rigidity Abdomen moving with respiration Normoactive bowel sounds No hepatomegaly, No splenomegaly No palpable mass No abdominal wall hernia noted Skin: Normal temperature, tone, texture, turgor No induration No subcutaneous nodules No rash, lesions No ulcers Extremities: No digital cyanosis No clubbing Pedal pulses intact and symmetrical Radial pulses intact and symmetrical Normal gait and station No calf tenderness Psychiatric:Alert and oriented to person, place and time Appropriate affect Intact judgement Neuro: Muscles Strength 5/5 in all 4 extremities Sensation to light touch grossly present throughout Cranial nerves II-XII grossly intact No focal sensory deficits Alcohol withdrawals we'll start the patient on Ativan Chest pain with typical and atypical features would put the patient on telemetry we'll check cardiac enzymes and observe overnight Hypertension Abdominal pain we'll check computed tomography scan of the abdomen and pelvis Past Medical History Past Medical History: GI Bleed, Seizure Disorder, Thyroid Disorder Additional Past Medical History / Comment(s): Patient poor historian, history gained from [employer] paperwork: Schizophrenia, bipolar, EtOh abuse, cocaine abuse, Gi ulcers, Summer-Quiroz tear, anemia, hemorrhoids, lupus History of Any Multi-Drug Resistant Organisms: None Reported Past Surgical History: Bowel Resection Additional Past Surgical History / Comment(s): Bowel resection December 2018 Past Anesthesia/Blood Transfusion Reactions: No Reported Reaction Past Psychological History: Bipolar, Schizoaffective Disorder Smoking Status: Current every day smoker Past Alcohol Use History: Abuse, Daily Past Drug Use History: Cocaine Objective - Vital Signs Vital signs: Vital Signs Temp 97.4 F L 03/01/22 07:49 Pulse 89 03/01/22 11:44 Resp 16 03/01/22 11:44 BP 115/70 03/01/22 11:44 Pulse Ox 99 03/01/22 11:44 FiO2 Intake & Output 02/28/22 03/01/22 03/01/22 18:59 06:59 18:59 Weight 74.843 kg - Labs CBC & Chem 7: 03/01/22 07:23 03/01/22 07:23 Labs: Abnormal Lab Results - Last 24 Hours (Table) 02/28/22 02/28/22 02/28/22 Range/Units 16:24 16:24 16:24 WBC 2.9 L (3.8-10.6) k/uL RBC 3.78 L (3.80-5.40) m/uL Hgb 9.8 L (11.4-16.0) gm/dL Hct 31.0 L (34.0-46.0) % MCHC (31.0-37.0) g/dL RDW 25.6 H (11.5-15.5) % Plt Count 120 L (150-450) k/uL Neutrophils # (1.3-7.7) k/uL Neutrophils # (Manual) 1.10 L (1.3-7.7) k/uL APTT 19.9 L (22.0-30.0) sec Sodium 135 L (137-145) mmol/L Carbon Dioxide 18 L (22-30) mmol/L BUN (7-17) mg/dL Glucose 66 L (74-99) mg/dL Magnesium 1.5 L (1.6-2.3) mg/dL AST 141 H (14-36) U/L ALT 49 H (4-34) U/L 03/01/22 03/01/22 Range/Units 07:23 07:23 WBC 2.7 L (3.8-10.6) k/uL RBC 3.65 L (3.80-5.40) m/uL Hgb 9.4 L (11.4-16.0) gm/dL Hct 30.9 L (34.0-46.0) % MCHC 30.3 L (31.0-37.0) g/dL RDW 24.9 H (11.5-15.5) % Plt Count 115 L (150-450) k/uL Neutrophils # 1.2 L (1.3-7.7) k/uL Neutrophils # (Manual) (1.3-7.7) k/uL APTT (22.0-30.0) sec Sodium 134 L (137-145) mmol/L Carbon Dioxide (22-30) mmol/L BUN 18 H (7-17) mg/dL Glucose 69 L (74-99) mg/dL Magnesium (1.6-2.3) mg/dL AST 99 H (14-36) U/L ALT 39 H (4-34) U/L
[2022-03-01 15:34] LABS: Chol/HDL Ratio 2.19 Ratio; LDL Cholesterol,Calculated 164.7 mg/dL (0.0-131.0); VLDL Calculation 13.32 mg/dL (5.00-40.00)
[2022-03-01] MEDS: HYDROcodone/APAP 5-325MG 1 EACH TAB PO PRN (15:43)
--- NOTE | 2022-03-01 21:28 | CT ---
EXAMINATION TYPE: CT abdomen pelvis w con DATE OF EXAM: 03/01/2022 COMPARISON: 02/25/2019 HISTORY: abdominal pain CT DLP: 868.3 mGycm Automated exposure control for dose reduction was used. CONTRAST: Performed with IV Contrast, patient injected with 100ml mL of Isovue 300. Lung bases are clear of consolidation. There is minimal subsegmental atelectasis right lung base. Hea rt is borderline enlarged. No pericardial effusion. No pleural effusion. There is some fatty infiltra tion of the liver. Liver shows no focal defect. Gallbladder appears normal. Spleen and stomach are in tact. There is no pancreatic mass. There is no adrenal mass. Kidneys show satisfactory contrast opaci fication. There is no hydronephrosis. Ureters are not dilated. There is no retroperitoneal adenopathy . Bladder distends smoothly. No inguinal hernia. There is some retained gas in the large bowel. This could be some mild ileus. The lumbar vertebra. Tach. There is L4-5 disc space narrowing. No compression fracture. There are surgical clips in the right mid abdomen. No ascites or free air. No evidence of mesenteric edema. IMPRESSION: Distended large bowel could relate to some mild ileus also present on the old exam. There is clearing of the small pericardial effusion compared to old exam.
[2022-03-02] MEDS ORDERED: SODIUM CHLORIDE 0.9% 1,000 ML IV ONE (00:56)
[2022-03-02] MEDS: SODIUM CHLORIDE 0.9% 1,000 ML IV SCH ×3 (02:16→16:32)
[2022-03-02] MEDS: METOPROLOL TARTRATE 12.5 MG TAB PO SCH ×2 (08:14→20:40)
[2022-03-02] MEDS: THIAMINE 100 MG TAB PO SCH ×2 (08:14→16:55)
[2022-03-02] MEDS: QUEtiapine 100 MG TAB PO SCH ×3 (08:14→20:40)
[2022-03-02] MEDS: LEVOTHYROXINE 25 MCG TAB PO SCH (08:14)
[2022-03-02] MEDS: hydrOXYzine HCL 25 MG TAB PO SCH ×2 (08:15→20:40)
[2022-03-02] MEDS: PANTOPRAZOLE 40 MG TABLET PO SCH (08:15)
[2022-03-02] MEDS: HYDROcodone/APAP 5-325MG 1 EACH TAB PO PRN (08:20)
[2022-03-02 09:45] LABS: African American GFR (CKD) 110.6 (60.0-200.0); Albumin 3.8 g/dL (3.8-4.9); Albumin/Globulin Ratio 1.99 (1.60-3.17); BUN/Creat Ratio 16.87 Ratio (12.00-20.00); Blood Urea Nitrogen 11.1 mg/dL (9.0-27.0); Calcium 8.6 mg/dL (8.7-10.3); Carbon Dioxide 24.5 mmol/L (20.0-27.5); Globulin 1.9 g/dL (1.6-3.3); Non-African American GFR(CKD) 95.4 (60.0-200.0); Potassium 3.9 mmol/L (3.5-5.5); Total Bilirubin 0.3 mg/dL (0.30-1.20); Total Protein 5.6 g/dL (6.2-8.2)
[2022-03-02 10:36] LABS: Basophils # (A) 0.02 X 10*3/uL (0.00-0.10); Basophils % (A) 0.7 %; Elliptocytes 2+; Eosinophils # (A) 0.06 X 10*3/uL (0.04-0.35); Eosinophils % (A) 2.1 %; HCT 27.2 % (37.2-46.3); HGB 8.9 g/dL (12.0-15.0); Immature Grans, Automated 0.4 %; Lymphocytes # (A) 1.35 X 10*3/uL (0.90-5.00); Lymphocytes % (A) 48.2 %; MCH 24.8 pg (27.0-32.0); MCHC 32.7 g/dL (32.0-37.0); MCV 75.8 fL (80.0-97.0); Monocytes # (A) 0.43 X 10*3/uL (0.20-1.00); Monocytes % (A) 15.4 %; NRBC Per 100 WBC 0.7 /100 WBCS (0.0-0.0); Neutrophils # (A) 0.93 X 10*3/uL (1.80-7.70); Neutrophils % (A) 33.2 %; Platelet Count 114 X 10*3/uL (140-440); RBC 3.59 X 10*6/uL (4.10-5.20); RDW 24.9 % (11.5-14.5); Target Cells 3+
--- NOTE | 2022-03-02 10:55 | CDI ---
Documentation Clarification Form Date: 03/02/2022 10:38:25 AM From: Tati SorensenBoothTEODORO wilkerson, CCDS Admit Date: 02/28/2022 06:43:00 PM Patient Name: Maryse Carpio Visit Number: [id number] Discharge Date: ATTENTION: The Clinical Documentation Specialists (CDI) and [facility] Coding Staff appreciate your assistance in clarifying documentation. Please respond to the clarification below the line at the bottom and electronically sign. The CDI & [facility] Coding staff will review the response and follow-up if needed. Please note: Queries are made part of the Legal Health Record. If you have any questions, please contact the author of this message via ITS. Dr. Cara Ackerman or Dr. Chavez Arreola: Anemia without further specificity is documented in the patient's Past Medical History in the 02/28 ED Note, the 02/28 H/P, the 03/01 Cardiology Consult and the 03/01 Attending Physician Progress Note. . Additional specificity regarding the Type & Acuity of Anemia is requested. History/Risk Factors per the 02/28 H/P: Anemia, EtOH Abuse, Cocaine Abuse, GI Ulcers, Summer-Quiroz Tear, Hemorrhoids, Lupus, Schizophrenia and Bipolar; Bowel Resection December 2018. Current Smoker. Clinical indicators: Presented to the ED on 02/28 via EMS from [facility] with Chest Pain with significant history of Alcoholism. Admit with Chest Pain, Hypomagnesemia and Alcohol Withdrawal Hemoglobin 02/28: 9.8, 03/01: 9.4, 03/02: 8.9 Hematocrit 02/28: 31.0, 03/01: 30.9, 03/02: 27.2 Treatment 02/28: Telemetry, O2 2Lnc (ordered, patient on room air), IV Ativan 0.5 mg x1, IV Ativan 1 mg q2H/prn, 1 mg q1H/prn; IV Ativan 2 mg q10M/prn (Ativan per [facility] protocol); IV Mag Sulfate/Dextrose 1 gm 100 mls @ 100 mls/hr x1, Nitro sl 0.4 mg/prn, IM Thiamine 100 mg x1, IV Zofran 4 mg q8/prn 03/01: IV Na Chl 1,000 mls @ 999 mls/hr q1H Home meds: Atarax, Benadryl, Buspar, Seroquel, Omeprazole, Trileptal, Synthroid, Lomotil, Questran Please clarify the Type and Acuity of Anemia: [ ] Chronic blood loss anemia [ ] Hemolytic anemia [ ] Drug induced anemia [ ] Anemia due to Chronic Disease, please specify if known: [ ] Other, please specify: [ x] Unable to determine (Template Last Revised: October 2020) MTDD
[2022-03-02] MEDS ORDERED: KETOROLAC 15 MG/ML 1 ML VIAL IVP STA (14:01)
--- NOTE | 2022-03-02 14:08 | P.PN ---
Subjective Progress Note Date: 03/02/22 Patient is emotionally labile today. She does continue to complain of abdominal pain. She is passing gas and stools. She reports nausea, vomiting with meals. Withdrawal is under control. Gen: awake, alert HEENT: normocephalic, atraumatic, good hearing acuity, moist mucous membranes Resp: good air exchange, breathing comfortably with no accessory muscle use, clear to auscultation bilaterally CVS: good distal perfusion x 4, regular rate and rhythm, no murmurs GI: soft, tender to palpation in the epigastrium, ND : no SPT, no CVAT, escobar catheter not present MSK: no pitting edema, no clubbing Neuro: non-focal, moving all extremities Psych: cooperative, euthymic mood Assessment/plan: Alcohol withdrawal syndrome Alcohol abuse Elevated liver enzymes -Admit to inpatient, telemetry -Monitor enzymes -Thiamine, folate, multivitamin -CIWA protocol -Ativan when necessary Pancytopenia -Likely alcohol abuse related -Patient counseled on cessation and follow-up Hyperlipidemia -Initiate atorvastatin Schizophrenia Bipolar disorder Peptic ulcer disease Seizure disorder GERD Hyperthyroidism -Home medications reviewed and reconciled Patient is full code DVT prophylaxis covered with heparin 3 times a day Objective - Vital Signs Vital signs: Vital Signs Temp 98.2 F 03/02/22 08:00 Pulse 62 03/02/22 08:00 Resp 18 03/02/22 08:00 BP 113/73 03/02/22 08:00 Pulse Ox 99 03/02/22 08:00 FiO2 Intake & Output 03/01/22 03/02/22 03/02/22 18:59 06:59 18:59 Intake Total 240 480 Balance 240 480 Weight 96.5 kg Intake: Oral 240 480 Other: # Voids 1 1 - Labs CBC & Chem 7: 03/02/22 05:49 03/02/22 05:49 Labs: Abnormal Lab Results - Last 24 Hours (Table) 03/01/22 03/02/22 03/02/22 Range/Units 07:23 05:49 05:49 WBC 2.80 L (4.50-10.00) X 10*3/uL RBC 3.59 L (4.10-5.20) X 10*6/uL Hgb 8.9 L (12.0-15.0) g/dL Hct 27.2 L (37.2-46.3) % MCV 75.8 L (80.0-97.0) fL MCH 24.8 L (27.0-32.0) pg RDW 24.9 H (11.5-14.5) % Plt Count 114 L (140-440) X 10*3/uL Plt Count Comment DECREASED A Absolute Nucleated RBC 0.02 H (0.00-0.00) X 10*3/uL Neutrophils # 0.93 L (1.80-7.70) X 10*3/uL NRBC/100 WBC Diff 0.7 H (0.0-0.0) /100 WBCS Calcium 8.6 L (8.7-10.3) mg/dL AST 60 H (13-35) U/L Total Protein 5.6 L (6.2-8.2) g/dL Cholesterol 327.00 H (0.00-200.00) mg/dL LDL Cholesterol, Calc 164.7 H (0.0-131.0) mg/dL HDL Cholesterol 149.00 H (40.00-60.00) mg/dL
[2022-03-02] MEDS: HEPARIN SODIUM,PORCINE/PF 5,000 UNIT/0.5 ML SYRINGE SQ SCH (16:55)
[2022-03-02] MEDS ORDERED: ATORVASTATIN 40 MG TAB PO SCH (21:00)
--- NOTE | 2022-03-02 22:24 | XR ---
EXAMINATION TYPE: XR abdomen 1V DATE OF EXAM: 03/02/2022 COMPARISON: 02/25/2019 HISTORY: Abdominal pain TECHNIQUE: 2 views upright FINDINGS: There is no sign of intestinal obstruction or pneumoperitoneum. Fecal pattern is normal. No evidence of a mass. There are no pathologic calcifications over the kidneys. There are clips in the right lower quadrant. Lung bases are clear. IMPRESSION: Nonacute abdomen. No adverse change compared to old exam.
[2022-03-03] MEDS: SODIUM CHLORIDE 0.9% 1,000 ML IV SCH (00:10)
[2022-03-03] MEDS: HEPARIN SODIUM,PORCINE/PF 5,000 UNIT/0.5 ML SYRINGE SQ SCH ×2 (00:45→06:59)
[2022-03-03] MEDS: LEVOTHYROXINE 25 MCG TAB PO SCH (06:20)
[2022-03-03] MEDS: hydrOXYzine HCL 25 MG TAB PO SCH (06:57)
[2022-03-03] MEDS: QUEtiapine 100 MG TAB PO SCH (06:57)
[2022-03-03] MEDS: METOPROLOL TARTRATE 12.5 MG TAB PO SCH (06:57)
[2022-03-03] MEDS: PANTOPRAZOLE 40 MG TABLET PO SCH (06:57)
[2022-03-03] MEDS: THIAMINE 100 MG TAB PO SCH (06:58)
[2022-03-03 07:34] VITALS: BP 112/76; PULSE 59; RESP 17; TEMP 97.9
[2022-03-03] MEDS ORDERED: FOLIC ACID 1 MG TAB PO SCH (09:00)
[2022-03-03] MEDS ORDERED: MULTIVITAMINS, THERA 1 EACH TAB PO SCH (09:00)
--- NOTE | 2022-03-03 13:48 | P.DS ---
Providers Date of admission: 02/28/22 18:43 Expected date of discharge: 03/03/22 Attending physician: Cara Ackerman MD Consults: 02/28/22 18:41 Consult Physician Urgent Consulting Provider: [facility] Consult Reason/Comments: Chest pain, alcohol withdrawal Do you want consulting provider notified?: Yes Primary care physician: Physician Nonstaff Hospital Course: Alcohol withdrawal syndrome Alcohol abuse Elevated liver enzymes Pancytopenia Hyperlipidemia Schizophrenia Bipolar disorder Peptic ulcer disease Seizure disorder GERD Hypothyroidism 61-year-old woman with medical history of alcohol abuse, seizure disorder, hyperlipidemia, peptic ulcer disease, schizophrenia/bipolar disorder presented with chest pain as well as pancytopenia. Patient was admitted for chest pain rule out, cardiology consulted and ruled out ACS given the patient was reporting atypical features including burning abdominal pain with radiation to the chest. She was subsequently treated for alcohol withdrawal syndrome, and required a minimal amount of Ativan. By the day of discharge, she was back to her baseline. Upon evaluation of her risk factors, she was noted to have elevated cholesterol, was initiated on statin. On discharge, she was sent back to [place] alcohol rehab. She is prescribed thiamine, folate, multivitamin. She was also initiated on metoprolol for blood pressure. Her remaining home medications were resumed without any changes. I spent 31 minutes coordinating this complex discharge, discharge date is 03/03 Gen: awake, alert HEENT: normocephalic, atraumatic, good hearing acuity, moist mucous membranes Resp: good air exchange, breathing comfortably with no accessory muscle use, clear to auscultation bilaterally CVS: good distal perfusion x 4, regular rate and rhythm, no murmurs GI: soft, tender to palpation in the epigastrium, ND : no SPT, no CVAT, escobar catheter not present MSK: no pitting edema, no clubbing Neuro: non-focal, moving all extremities Psych: cooperative, euthymic mood Patient Condition at Discharge: Good Plan - Discharge Summary New Discharge Prescriptions: New Folic Acid 1 mg PO DAILY #14 tab Atorvastatin [Lipitor] 40 mg PO HS #30 tab Thiamine [Vitamin B-1] 100 mg PO BID-W/MEALS #28 tab Metoprolol Tartrate [Lopressor] 12.5 mg PO BID #60 tab Multivitamins, Thera [Multivitamin (formulary)] 1 each PO DAILY #30 tab Naltrexone HCl [Revia] 50 mg PO DAILY #30 tablet Continue QUEtiapine [SEROquel] 100 mg PO TID QUEtiapine [SEROquel] 400 mg PO HS OXcarbazepine [Trileptal] 300 mg PO BID Omeprazole 20 mg PO DAILY Loperamide HCl [Imodium A-D] 2 - 4 mg PO QID PRN PRN Reason: Diarrhea hydrOXYzine HCL [Atarax] 25 mg PO BID Ketoconazole 2% Shampoo [Nizoral] 1 applic TOPICAL Q7D Diphenox-Atrop 2.5-0.025 mg [Lomotil] 1 tab PO BID PRN PRN Reason: Diarrhea Selenium Sulfide Lotion 2.5% Lotion 1 applic TOPICAL DAILY Triamcinolone 0.1% Cream [Kenalog 0.1% Cream] 1 applic TOPICAL BID PRN PRN Reason: Rash Levothyroxine Sodium [Synthroid] 200 mcg PO DAILY Levothyroxine Sodium [Synthroid] 25 mcg PO DAILY diphenhydrAMINE [Benadryl] 25 mg PO BID PRN PRN Reason: Allergy Symptoms busPIRone HCL [Buspar] 30 mg PO BID Cholestyramine (with Sugar) [Questran Packet] 4 gm PO BID PRN PRN Reason: Diarrhea Acetaminophen Tab [Tylenol] 1,000 mg PO Q6H PRN PRN Reason: Fever And/ Or Pain Discharge Medication List QUEtiapine [SEROquel] 100 mg PO TID 02/25/19 [History] Acetaminophen Tab [Tylenol] 1,000 mg PO Q6H PRN 02/28/22 [History] Cholestyramine (with Sugar) [Questran Packet] 4 gm PO BID PRN 02/28/22 [History] Diphenox-Atrop 2.5-0.025 mg [Lomotil] 1 tab PO BID PRN 02/28/22 [History] Ketoconazole 2% Shampoo [Nizoral] 1 applic TOPICAL Q7D 02/28/22 [History] Levothyroxine Sodium [Synthroid] 25 mcg PO DAILY 02/28/22 [History] Levothyroxine Sodium [Synthroid] 200 mcg PO DAILY 02/28/22 [History] Loperamide HCl [Imodium A-D] 2 - 4 mg PO QID PRN 02/28/22 [History] OXcarbazepine [Trileptal] 300 mg PO BID 02/28/22 [History] Omeprazole 20 mg PO DAILY 02/28/22 [History] QUEtiapine [SEROquel] 400 mg PO HS 02/28/22 [History] Selenium Sulfide Lotion 2.5% Lotion 1 applic TOPICAL DAILY 02/28/22 [History] Triamcinolone 0.1% Cream [Kenalog 0.1% Cream] 1 applic TOPICAL BID PRN 02/28/22 [History] busPIRone HCL [Buspar] 30 mg PO BID 02/28/22 [History] diphenhydrAMINE [Benadryl] 25 mg PO BID PRN 02/28/22 [History] hydrOXYzine HCL [Atarax] 25 mg PO BID 02/28/22 [History] Atorvastatin [Lipitor] 40 mg PO HS #30 tab 03/03/22 [Rx] Folic Acid 1 mg PO DAILY #14 tab 03/03/22 [Rx] Metoprolol Tartrate [Lopressor] 12.5 mg PO BID #60 tab 03/03/22 [Rx] Multivitamins, Thera [Multivitamin (formulary)] 1 each PO DAILY #30 tab 03/03/22 [Rx] Naltrexone HCl [Revia] 50 mg PO DAILY #30 tablet 03/03/22 [Rx] Thiamine [Vitamin B-1] 100 mg PO BID-W/MEALS #28 tab 03/03/22 [Rx] Follow up Appointment(s)/Referral(s): Nonstaff,Physician [Primary Care Provider] - 1-2 days Patient Instructions/Handouts: Abdominal Pain (GEN) Activity/Diet/Wound Care/Special Instructions: [place] - [phone] - call to transport back at discharge Discharge Disposition: HOME SELF-CARE
== END 2022-03-03 13:34 | disposition home or self-care (01) | DRG 897 ==
LOC: EC 15:56 → 3SCARD 18:43 → 5NMEDONC 03-01 13:48 → 4SSUR 03-01 23:28
PROVIDERS: ADMIT Internal Medicine; ATTEND Internal Medicine
PROC: HZ2ZZZZ Detoxification Services for Substance Abuse Treatment (ICD-10-PCS; principal; 2022-02-28)
DX: F10.239 Alcohol dependence with withdrawal, unspecified (principal); D61.818 Other pancytopenia; F14.10 Cocaine abuse, uncomplicated; F25.9 Schizoaffective disorder, unspecified; G40.909 Epilepsy, unspecified, not intractable, without status epilepticus; K29.70 Gastritis, unspecified, without bleeding; R74.01 Elevation of levels of liver transaminase levels; R07.89 Other chest pain; K64.9 Unspecified hemorrhoids; F31.9 Bipolar disorder, unspecified; E83.42 Hypomagnesemia; Z88.6 Allergy status to analgesic agent; I49.3 Ventricular premature depolarization; Y90.2 Blood alcohol level of 40-59 mg/100 ml; R10.9 Unspecified abdominal pain; D64.9 Anemia, unspecified; K21.9 Gastro-esophageal reflux disease without esophagitis; E05.90 Thyrotoxicosis, unspecified without thyrotoxic crisis or storm; E78.5 Hyperlipidemia, unspecified; Z90.49 Acquired absence of other specified parts of digestive tract; Z79.890 Hormone replacement therapy; Z79.899 Other long term (current) drug therapy; Z87.19 Personal history of other diseases of the digestive system; Z87.11 Personal history of peptic ulcer disease
CPT/HCPCS: 36415; 71046; 74018; 74177; 80053; 80061; 80320; 83735; 84484; 85025; 85610; 85730; 93005; 96365; 96372; 96375; 96376; 99285